=== PATIENT | female | born 1960 | race Caucasian/White ===

== ENCOUNTER 2016-07-28 00:37 | Inpatient (IN) | payer OTHER ==
[~2016-07-28] VITALS: Ht 177.8 cm; Wt 105.7 kg
[~2016-07-28 00:37] MED LIST: ACID1TAB16 PO; ALBU8.5H2 IH; ALDACTAZIDE; CEPH250T PO; CIPR250S3 PO; CIPR250T3 PO; CODE118S2 PO; D50KC PO; DOXY100C2 PO; ESOM20SU PO; FLC150T PO; FRSM20T PO; FURO20TA4 PO; FURO40TA4 PO; FURO80TA3 PO; FURO80TA83 PO; GUAI5LIQ3 PO; HYDR118S10 PO; HYDR1CAP2 PO; HYOS0.1217 PO; KCL20TCR PO; LACT10SO PO; LACT10SO5 PO; LACTULOSE PO; LEVO500T69 PO; LEVO750T9 PO; METH4TAB PO; METO5TAB6 PO; METR500T PO; NEPA1.7D OS; NITR-65 PO; ONDA-42 SL; ONDA4TAB11 PO; ONDA4TAB11 SL; ONDA4TAB8 SL; OXYC-12 PO; OXYC-190 PO; OXYC10TA7 PO; OXYC15TA73 PO; OXYC20TA3 PO; OXYC30TA77 PO; PNT40TEC PO; POTA10CA43 PO; POTA10TA36 PO; PRD20T PO; PRED5DRO17 OD; PRED5DRO17 OS; PRM25T PO; RANI150T11 PO; RANI150T90 PO; RIFA550T3 PO; RNT150T PO; SCR1T1 PO; SPIR100T2 PO; SPIR1TAB; SPIR50TA2 PO; SPIR50TA27 PO; SPRN25T PO; TRM50T PO; WATER PILL; [UNRECOGNIZED DRUG - REMARK]; [UNRECOGNIZED DRUG - REMARK]
--- OUTSIDE RECORDS SUMMARY | 2016-07-28 00:43 | XMS REPORT | Continuity of Care Document ---
Author Author [facility] Organization [facility] Address Unknown Phone Unavailable Care Team Providers Care Auto Glass Installer Name Role Phone Nolvia Lovell PCP [phone] Source Comments Some departments are not documenting in the electronic medical record. If you do not see the information that you expected, contact Release of Information in the Health Information Management department at [phone] for further assistance in locating additional records.[facility] Active Allergies and Adverse Reactions Not on File Current Medications Not on file Active Problems Not on file Social History Tobacco Use Types Packs/Day Years Used Date Never Assessed Plan of Care Date Type Specialty Providers Description 08/14/2016 Appointment Hepatology Nicki Gonzalez MD [address] [facility] [address] [place] [address] [phone] (Fax) Health Maintenance Due Date Last Done Comments Hepatitis C Screening 1959 Physical (Comprehensive) 1966 Exam Pertussis Vaccine 1970 Tetanus Vaccine 02/13/1976 Cervical Cancer Screening 02/13/1980 Breast Cancer Screening 1999 Colorectal Cancer 2009 Screening Influenza Vaccine 03/29/2016 Results from Last 3 Months Not on file
[2016-07-28] MEDS: NS IV 1000 ML 1,000 ML IV SCH ×2 (01:53→14:20)
[2016-07-28] MEDS: LACTULOSE SYRUP 10GM/15ML (ENULOSE) 30ML UDC PO SCH ×8 (01:54→23:36)
[2016-07-28 04:00] VITALS: BP 102/66
[2016-07-28] MEDS ORDERED: FLU TRIvalent (5 YOA+) 2016-17 (AFLURIA) 0.5 ML IM ONE (07:45)
[2016-07-28 08:00] VITALS: BP 114/71
[2016-07-28] MEDS ORDERED: CATHETER FLUSH 10 ML SYR IV PRN (09:30)
[2016-07-28 09:37] LABS: MEAN PLATELET VOLUME 9.1 FL (7.4-10.4); RED BLOOD COUNT 2.14 10^6/uL (4.35-5.85); RED CELL DISTRIBUTION WIDTH 19.9 % (10.0-14.5); WHITE BLOOD COUNT 7.1 10^3/uL (4.3-11.0)
[2016-07-28 09:52] LABS: ALBUMIN 2.5 G/DL (3.2-4.5); BILIRUBIN,TOTAL 11.1 MG/DL (0.1-1.0); CALCIUM 8.1 MG/DL (8.5-10.1); CREATININE SERUM 1.38 MG/DL (0.60-1.30); MAGNESIUM 1.9 MG/DL (1.8-2.4); POTASSIUM 4.4 MMOL/L (3.6-5.0); TOTAL PROTEIN 4.9 G/DL (6.4-8.2)
[2016-07-28] MEDS: LACTULOSE SYRUP 10GM/15ML (ENULOSE) 30ML UDC PR SCH ×5 (10:04→23:37)
--- NOTE | 2016-07-28 11:17 | History & Physicial (CHS) ---
HPI History of Present Illness: This is a 56 yo female w/ advanced liver disease secondary to BROWN. Pt has had a hx of multiple hospitalization for confusion related to hepatic encephalopathy. Pt is on Lactulose but family reports patient is non-compliant with it due to not liking the taste. Pt's reported to the ER that she takes 1-2 doses per day but not 4 doses as prescribed. Pt was last hospitalized on 07/02/16 for the same condition. Over the past few days patient has been increasingly confused and was subsequently taken to the [facility]. She was found to have an ammonia level >300. Pt is chronically anemic and was found to have a Hb around 7 at [facility]. Pt was transferred to for admission. She continues to be confused this am, though she is arousable. She has been not -compliant with taking the Lactulose po since admission. Exam Limitations: clinical condition Date seen by provider: Jul 28, 2016 Time seen by provider: 09:10 Attending Physician Matt Blackmon DO PCP sabina,[facility] Date of Admission Jul 28, 2016 at 00:37 Home Medications Home Medications Reviewed patient Home Medication Reconciliation Form Allergies Coded Allergies: No Known Drug Allergies (Unverified , 03/22/13) OBI-Phbwxa-Stzcrh Hx Patient Social History Alcohol Use: Denies Use Recreational Drug Use: No (SMOKER, DENIES ALCOHOL USE) Smoking Status: Current Everyday Smoker Type Used: Cigarettes Recent Foreign Travel: No Contact w/other who traveled: No Recent Hopitalizations: Yes (1981-intestinal bypass (for weight loss) & appy, 1983 removed uterus -cance) Recent Infectious Disease Expo: No Physical Abuse Screen: No Sexual Abuse: No Immunizations Up To Date Tetanus Booster (TDap): Unknown Date of Influenza Vaccine: May 06, 2015 Past Medical History Past medical history 1. 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 Thompson, multiple episodes of hepatic Encephalopathy 2. 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 Portal hypertension and splenomegaly secondary to number 1 4. Pancytopenia 5. Tobaccoism 6. Hiatal hernia and GERD 7. History of pancreatic pseudocyst 8. Venous insufficiency and chronic stasis dermatitis 9. Cervical cancer by history 10. Chronic Narcotic Use secondary to "chronic pain" 11. Chronic non-compliance with medications, diet and follow up Past surgical history 1. Hysterectomy 2. Tonsillectomy and adenoidectomy 3. Varicose vein stripping 4. Cholecystectomy 5. Intestinal bypass and reversal 6. Appendectomy 7. Esophageal varices banding x4 2010 Family Medical History Significant Family History: No Pertinent Family Hx, GI Disease Family History: Cervical cancer 19 MOTHER FH: heart disease 19 FATHER Review of Systems ([facility]) Constitutional: other (unable to obtain secondary to patient's confusion) Physical Exam-([facility]) Physical Exam Vital Signs VS - Last 72 Hours, by Label 07/27/16 07/28/16 01:15 04:00 Temp 97.8 Pulse 79 Resp 16 B/P 102/66 Pulse Ox 94 O2 Delivery Room Air Room Air Capillary Refill : Less Than 3 Seconds General Appearance: no apparent distress Respiratory: lungs clear normal breath sounds Cardiovascular: regular rate, rhythm Gastrointestinal: soft Neurologic/Psychiatric: other (arousable but lethargic, not oriented) Skin: jaundice Assessment/Plan Assessment/Plan Admission Dx 1. Hepatic Encephalopathy w. elevated ammonia levels 2. End-stage liver disease secondary to BROWN 3. Chronic pancytopenia secondary to #2 Plan 1. Hepatic Encephalopathy w/ elevated ammonia levels ADM 07/28/16 from [facility] ER - non-compliance with home lactulose dosing with elevated ammonia levels >300 in the ER - pt refusing po lactulose; will do NH as needed; ammonia levels have decreased to 111 since admission 2. End-stage liver disease secondary to BROWN ADM - bili 11.1 currently (was 7 02/2016) - will continue home Spironolactone, Lasix and Ranitidine 3. Chronic pancytopenia secondary to #2 ADM - baseline Hb in the 7s which is not significantly different from current level - multiple antibody complicates blood transfusion; do not recommend transfusion at this time as pt is near baseline currently at 6.8 after IVF 4. THERON - likely secondary to intravascular volume depletion ADM - GFR 39 (improved some from ER); GFR was 60 on most recent clinic lab - gently IVF hydration, monitor DVT ppx: Lovenox contraindicated secondary to thrombocytopenia, will use SCDs Diagnosis/Problems: Clinical Quality Measures DVT/VTE Risk/Contraindication: Risk Factor Score Per Nursin RFS Level Per Nursing on Admit: 4+=Very High MATT BLACKMON DO Jul 28, 2016 11:17
[2016-07-28 11:28] LABS: INR 1.6 (0.8-1.4); PROTHROMBIN TIME PATIENT 18.9 SEC (12.2-14.7)
[2016-07-28 12:00] VITALS: BP 102/64
[2016-07-28 16:00] VITALS: BP 106/70
[2016-07-28] MEDS: FUROSEMIDE 40 MG (LASIX) TAB PO SCH (17:00)
[2016-07-28 20:15] VITALS: BP 112/65
[2016-07-28] MEDS ORDERED: FAMOTIDINE 20 MG (PEPCID) TABLET PO SCH (21:00)
[2016-07-28] MEDS ORDERED: raNItidine (ZANTAC) 150 MG TAB NON-FORMULARY PO SCH (21:00)
[2016-07-28] MEDS ORDERED: FUROSEMIDE 80 MG PO SCH (21:00)
[2016-07-28 23:31] VITALS: BP 122/69
[2016-07-29] MEDS: NS IV 1000 ML 1,000 ML IV SCH (02:37)
[2016-07-29 03:26] VITALS: BP 122/58
[2016-07-29] MEDS: LACTULOSE SYRUP 10GM/15ML (ENULOSE) 30ML UDC PR SCH (03:57)
[2016-07-29] MEDS: LACTULOSE SYRUP 10GM/15ML (ENULOSE) 30ML UDC PO SCH (03:57)
[2016-07-29 05:33] LABS: MEAN PLATELET VOLUME 8.6 FL (7.4-10.4); RED BLOOD COUNT 2.23 10^6/uL (4.35-5.85); RED CELL DISTRIBUTION WIDTH 20.4 % (10.0-14.5); WHITE BLOOD COUNT 8.9 10^3/uL (4.3-11.0)
[2016-07-29 05:48] LABS: ALBUMIN 2.5 G/DL (3.2-4.5); BILIRUBIN,TOTAL 10.2 MG/DL (0.1-1.0); CALCIUM 7.9 MG/DL (8.5-10.1); CREATININE SERUM 1.26 MG/DL (0.60-1.30); MAGNESIUM 1.9 MG/DL (1.8-2.4); POTASSIUM 3.7 MMOL/L (3.6-5.0); TOTAL PROTEIN 4.8 G/DL (6.4-8.2)
[2016-07-29] MEDS: FUROSEMIDE 40 MG (LASIX) TAB PO SCH (06:24)
[2016-07-29 08:00] VITALS: BP 123/70
[2016-07-29] MEDS ORDERED: LACTULOSE 10 GM/15 ML 30 ML POUR BOTTLE FOR ENEMA PO SCH ×3 (08:00→14:00)
[2016-07-29] MEDS ORDERED: LACTULOSE 10 GM/15 ML 30 ML POUR BOTTLE FOR ENEMA PR SCH (08:00)
[2016-07-29] MEDS ORDERED: SPIRONOLACTONE 100 MG (ALDACTONE) TABLET PO SCH (09:00)
[2016-07-29] MEDS ORDERED: CALCIUM CARBONATE 500 MG (TUMS) TAB.CHEW PO PRN (11:00)
--- NOTE | 2016-07-29 11:06 | Progress Note (SOAP) ---
Subjective Subjective/Events-last exam Pt now significantly more alert. RN weakness and unsteadiness w/ ambulation. Now taking lactulose po. Objective Exam Last Set of Vital Signs Vital Signs Date Time Temp Pulse Resp B/P Pulse Ox O2 Delivery O2 Flow Rate FiO2 07/29/16 08:00 99.7 71 22 123/70 95 07/29/16 07:32 Room Air Capillary Refill : Less Than 3 Seconds I&O Intake and Output 07/29/16 00:00 Intake Total 1440 ml Output Total 425 ml Balance 1015 ml Intake Oral 440 ml IV Total 1000 ml Output Urine Total 425 ml # Voids 2 # Urine Diapers 1 # Bowel Movements 2 General: Alert, Oriented X3, Cooperative Skin: Other (jaundiced) Psych/Mental Status: Mood NL Results/Procedures Lab Laboratory Tests 07/29/16 05:20: Alanine Aminotransferase (ALT/SGPT) 21, Albumin 2.5L, Alkaline Phosphatase 142H , Ammonia 47H, Anion Gap 10, Aspartate Amino Transf (AST/SGOT) 28, BUN/ Creatinine Ratio 20, Blood Urea Nitrogen 25H, Calcium Level 7.9L, Carbon Dioxide Level 18L, Chloride Level 110H, Creatinine 1.26, Estimat Glomerular Filtration Rate 44, Glucose Level 116H, Hematocrit 22L, Hemoglobin 6.9*L, Magnesium Level 1.9, Mean Corpuscular Hemoglobin 31, Mean Corpuscular Hemoglobin Concent 32, Mean Corpuscular Volume 98, Mean Platelet Volume 8.6, Platelet Count 121L, Potassium Level 3.7, Red Blood Count 2.23L, Red Cell Distribution Width 20.4H, Sodium Level 138, Total Bilirubin 10.2H, Total Protein 4.8L, White Blood Count 8.9 Assessment/Plan Assessment/Plan Admission Dx 1. Hepatic Encephalopathy w. elevated ammonia levels 2. End-stage liver disease secondary to BROWN 3. Chronic pancytopenia secondary to #2 Plan 1. Hepatic Encephalopathy w/ elevated ammonia levels ADM 07/28/16 from [facility] [place] - non-compliance with home lactulose dosing with elevated ammonia levels >300 in the ER - pt refusing po lactulose; will do HI as needed; ammonia levels have decreased to 111 since admission 07/29 - ammonia level down to 47 w/ clearing mentation; change lactulose back to home dose of 10g q6h; discussed with pt and importance of compliance with q6h dosing at home. 2. End-stage liver disease secondary to BROWN ADM - bili 11.1 currently (was 7 02/2016) - will continue home Spironolactone, Lasix and Ranitidine 3. Chronic pancytopenia secondary to #2 ADM - baseline Hb in the 7s which is not significantly different from current level - multiple antibody complicates blood transfusion; do not recommend transfusion at this time as pt is near baseline currently at 6.8 after IVF 07/29 - Hb stable at 6.9 4. THERON - likely secondary to intravascular volume depletion ADM - GFR 39 (improved some from ER); GFR was 60 on most recent clinic lab - gently IVF hydration, monitor 07/29 - GFR 44 - improving DVT ppx: Lovenox contraindicated secondary to thrombocytopenia, will use SCDs Disp: Will ambulate today, anticipate DC home tomorrow. Diagnosis/Problems: Clinical Quality Measures DVT/VTE Risk/Contraindication: Risk Factor Score Per Nursin RFS Level Per Nursing on Admit: 4+=Very High Contraindications-Pharm: Other *list below* MATT BLACKMON DO Jul 29, 2016 11:06
[2016-07-29 12:00] VITALS: BP 128/60
[2016-07-29] MEDS ORDERED: LACTULOSE SYRUP 10GM/15ML (ENULOSE) 30ML UDC PO SCH (14:00)
--- NOTE | 2016-08-01 11:29 | Physician Query-Final Dx ---
KODI KERR 08/01/16 1129: Final Diagnosis Give Final Diagnosis Please give Final Diagnosis MATT BLACKMON DO 08/02/16 1206: Final Diagnosis Give Final Diagnosis 1. Hepatic Encephalopathy w/ elevated ammonia levels ADM 07/28/16 from [facility] ER - non-compliance with home lactulose dosing with elevated ammonia levels >300 in the ER - pt refusing po lactulose; will do SC as needed; ammonia levels have decreased to 111 since admission 07/29 - ammonia level down to 47 w/ clearing mentation; change lactulose back to home dose of 10g q6h; discussed with pt and importance of compliance with q6h dosing at home. 2. End-stage liver disease secondary to BROWN ADM - bili 11.1 currently (was 7 02/2016) - will continue home Spironolactone, Lasix and Ranitidine 3. Chronic pancytopenia secondary to #2 ADM - baseline Hb in the 7s which is not significantly different from current level - multiple antibody complicates blood transfusion; do not recommend transfusion at this time as pt is near baseline currently at 6.8 after IVF 07/29 - Hb stable at 6.9 4. THERON - likely secondary to intravascular volume depletion ADM - GFR 39 (improved some from ER); GFR was 60 on most recent clinic lab - gently IVF hydration, monitor 07/29 - GFR 44 - improving Disp: patient left AMA on 07/29/16 KODI KERR Aug 01, 2016 11:29 MATT BLACKMON DO Aug 02, 2016 12:06
== END 2016-07-29 13:25 | disposition left against medical advice (07) | DRG 442 ==
LOC: 4TH 00:37
PROVIDERS: ADMIT Family Medicine; ATTEND Family Medicine
DX: K72.90 Hepatic failure, unspecified without coma (principal); K74.60 Unspecified cirrhosis of liver; K75.81 Nonalcoholic steatohepatitis (NASH); D61.818 Other pancytopenia; N17.9 Acute kidney failure, unspecified; E86.9 Volume depletion, unspecified; F17.210 Nicotine dependence, cigarettes, uncomplicated; Z91.14 Patient's other noncompliance with medication regimen
CPT/HCPCS: 36415; 80053; 82140; 83735; 85027; 85610

== ENCOUNTER 2016-08-11 22:12 | Inpatient (IN) | payer OTHER ==
[~2016-08-11] VITALS: Ht 177.8 cm; Wt 114.5 kg
--- OUTSIDE RECORDS SUMMARY | 2016-08-11 22:17 | XMS REPORT | Continuity of Care Document ---
Author Author [facility] Organization [facility] Address Unknown Phone Unavailable Care Team Providers Care Metal Machine Setter Name Role Phone Nolvia Lovell PCP [phone] Source Comments Some departments are not documenting in the electronic medical record. If you do not see the information that you expected, contact Release of Information in the Health Information Management department at [phone] for further assistance in locating additional records.[facility] Active Allergies and Adverse Reactions Not on File Current Medications Not on file Active Problems Not on file Most Recent Encounters Date Type Specialty Providers Description 08/08/2016 Telephone Hepatology Nicki Gonzalez MD Appointment Request Social History Tobacco Use Types Packs/Day Years Used Date Never Assessed Plan of Care Date Type Specialty Providers Description 08/14/2016 Appointment Hepatology Nicki Goznalez MD [address] [facility] [address] [place] [address] [phone] (Fax) Health Maintenance Due Date Last Done Comments Hepatitis C Screening 1959 Physical (Comprehensive) 1966 Exam Pertussis Vaccine 1970 Tetanus Vaccine 02/13/1976 Cervical Cancer Screening 02/13/1980 Breast Cancer Screening 1999 Colorectal Cancer 2009 Screening Influenza Vaccine 03/29/2016 Results from Last 3 Months Not on file
[2016-08-11 22:21] LABS: BASOPHILS # (AUTO) 0.1 10^3/uL (0.0-0.1); BASOPHILS % (AUTO) 1 % (0-10); EOSINOPHILS # (AUTO) 0.4 10^3/uL (0.0-0.3); EOSINOPHILS % (AUTO) 4 % (0-10); LYMPHOCYTES # (AUTO) 2.1 X 10^3 (1.0-4.0); LYMPHOCYTES % (AUTO) 22 % (12-44); MEAN CORPUSCULAR HEMOGLOBIN 30 PG (25-34); MEAN CORPUSCULAR HGB CONC 33 G/DL (32-36); MEAN CORPUSCULAR VOLUME 92 FL (80-99); MEAN PLATELET VOLUME 9.1 FL (7.4-10.4); MONOCYTES # (AUTO) 1.2 X 10^3 (0.0-1.0); MONOCYTES % (AUTO) 13 % (0-12); NEUTROPHILS # (AUTO) 5.9 X 10^3 (1.8-7.8); NEUTROPHILS % (AUTO) 61 % (42-75); PLATELET COUNT 149 10^3/uL (130-400); RED CELL DISTRIBUTION WIDTH 20.2 % (10.0-14.5); WHITE BLOOD COUNT 9.7 10^3/uL (4.3-11.0)
[2016-08-11] MEDS ORDERED: POTA10CA43 PO (22:29)
[2016-08-11 22:30] LABS: INR 1.6 (0.8-1.4); PROTHROMBIN TIME PATIENT 18.4 SEC (12.2-14.7)
[2016-08-11 22:40] LABS: ALBUMIN 3.1 G/DL (3.2-4.5); BILIRUBIN,TOTAL 11.9 MG/DL (0.1-1.0); CALCIUM 8.4 MG/DL (8.5-10.1); CREATININE SERUM 1.19 MG/DL (0.60-1.30); POTASSIUM 4.2 MMOL/L (3.6-5.0); TOTAL PROTEIN 6.2 G/DL (6.4-8.2)
[2016-08-11] MEDS ORDERED: NALOXONE 0.4 MG/ML 1 ML (NARCAN) VIAL IV ONE (22:45)
[2016-08-11] MEDS ORDERED: ONDANSETRON 4 MG/2 ML (SDV) Z0FRAN ONE (22:46)
[2016-08-11] MEDS ORDERED: NS IV 500 ML 500 ML IV ONE (22:57)
[2016-08-11] MEDS ORDERED: LACTULOSE SYRUP 10GM/15ML (ENULOSE) 30ML UDC PO ONE (23:30)
--- NOTE | 2016-08-11 23:39 | ED General ---
General Chief Complaint: Altered Mental Status Stated Complaint: LETHARGIC Nursing Triage Note: pt family reports pt has become increasingly sedated and having issues with lower leg swelling since yesterdy afternoon. Upon arrival pt is able to be aroused verbally and with mild stimulation but falls asleep shortly after. It is also noted that pt has irregular respirations with periods of apnea when sleeping. Nursing Sepsis Screen: No Definite Risk Source of Information: Patient, EMS, Family, Old Records Exam Limitations: Physical Impairments History of Present Illness Time Seen by Provider: 22:14 Initial Comments This 56-year-old woman presents to the emergency room via EMS with altered mental status. She has brief periods of apnea without hypoxia. She has history of chronic liver failure. She has been admitted for hepatic encephalopathy recently and left AGAINST MEDICAL ADVICE. She has had numerous visits and admissions over the last year. Family activated EMS because of altered mental status. They report she has been nauseated and had some cough. She has not produced a bowel movement in several days despite taking 15 mL of lactulose 4 times a day as well as Dulcolax. They report she has actually had 5 doses of lactulose today. She also took 30 mg of morphine in the last 24 hours and has had a total of 10 Benadryl tablets in the past 48 hours. Urine output has also been decreased. She is afebrile. She is responsive but falls asleep again shortly after stimulus ceases. She will answer some questions. She has chronic anemia and has required transfusions in the past. Allergies and Home Medications Allergies Coded Allergies: No Known Drug Allergies (Unverified , 03/22/13) Home Medications Furosemide 80 Mg Tablet #60 80 MG PO BID Prescribed by: VIVI REID on 07/02/168 Lactulose 10 Gm/15 Ml Solution 90Days 10 GM PO TID Prescribed by: VIVI REID on 07/02/16 115 Potassium Chloride 10 Meq Capsule.er 10 MEQ PO DAILY (Reported) Ranitidine HCl 150 Mg Tablet #60 150 MG PO BID Prescribed by: VIVI REID on 07/02/16 115 Spironolactone 100 Mg Tablet #60 200 MG PO DAILY Prescribed by: VIVI REID on 07/02/16 1158 Constitutional: see HPI EENTM: other (scleral icterus, dry mouth) Respiratory: see HPI Cardiovascular: no symptoms reported Gastrointestinal: see HPI Genitourinary: see HPI : No Musculoskeletal: no symptoms reported Skin: other (jaundice) Psychiatric/Neurological: See HPI Hematologic/Lymphatic: See HPI Immunological/Allergic: no symptoms reported Past Ajhwhcq-Smmlfr-Lndyui Hx Patient Social History Alcohol Use: Denies Use Recreational Drug Use: No (SMOKER, DENIES ALCOHOL USE) Smoking Status: Current Everyday Smoker Type Used: Cigarettes Recent Foreign Travel: No Contact w/Someone Who Travel: No Recent Infectious Disease Expo: No Recent Hopitalizations: Yes (1981-intestinal bypass (for weight loss) & appy, 1983 removed uterus -cance) Physical Abuse Screen: No Sexual Abuse: No Immunizations Up To Date Tetanus Booster (TDap): Unknown Date of Influenza Vaccine: May 06, 2015 Seasonal Allergies Seasonal Allergies: No Surgeries HX Surgeries: Yes (INTESTINAL BYPASS & REVERSAL, EXPL. 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 Genitourinary Hx Genitourinary Disorders: No Gastrointestinal Hx Gastrointestinal Disorders: Yes Gastrointestinal Disorders: Gastroesophageal Reflux, Liver Disease/Jaundice, Esophageal Varices, Ulcer, Cirrhosis, Gall Bladder Disease Musculoskeletal Hx Musculoskeletal Disorders: No Endocrine Hx Endocrine Disorders: Yes Endocrine Disorders: Lupus HEENT HX ENT Disorders: Yes HEENT Disorders: Cataract Cancer Hx Cancer: Yes Cancer: Cervical Psychosocial Hx Psychiatric Problems: No Integumentary HX Skin/Integumentary Disorder: Yes (venous stasis manuel lower ext ) Blood Transfusions Hx Blood Disorders: Yes (ANEMIA) Adverse Reaction to a Blood Tr: Yes (BLOOD BANK ALERT) Family Medical History Significant Family History: No Pertinent Family Hx, GI Disease Family Medial History: Cervical cancer 19 MOTHER FH: heart disease 19 FATHER Physical Exam Vital Signs Vital Sign - Last 12Hours 08/11/16 22:15 Temp 99.3 Pulse 85 Resp 7 B/P 128/53 Pulse Ox 98 Capillary Refill : Less Than 3 Seconds General Appearance: WD/WN Other (sedated, decreased responsiveness) HEENT: PERRL/EOMI Scleral Icterus (L) Scleral Icterus (R) Other (oropharynx dry with a small amount of dry blood in the mouth.) Respiratory: Lungs Clear Normal Breath Sounds No Accessory Muscle Use No Respiratory Distress Other (brief periods of apnea without hypoxia) Cardiovascular: Regular Rate, Rhythm No Edema No Murmur Gastrointestinal: Normal Bowel Sounds Non Tender Soft Extremity: Pedal Edema (severe pitting edema in the bilateral lower extremities) Neurologic/Psychiatric: Alert (with stimulation) Other (hypersomnolent. No apparent focal motor deficits. Global weakness.) Skin: Warm/Dry Jaundice Progress/Results/Core Measures Results/Orders Lab Results Laboratory Tests Test 08/11/16 22:13 08/11/16 22:23 Range/Units Alanine Aminotransferase (ALT/SGPT) 31 0-55 U/L Albumin 3.1 L 3.2-4.5 G/DL Alkaline Phosphatase 196 H 40-136 U/L Anion Gap 14 5-14 MMOL/L Aspartate Amino Transf (AST/SGOT) 38 H 5-34 U/L BUN/Creatinine Ratio 17 Basophils # (Auto) 0.1 0.0-0.1 10^3/uL Basophils (%) (Auto) 1 0-10 % Blood Urea Nitrogen 20 H 7-18 MG/DL Calcium Level 8.4 L 8.5-10.1 MG/DL Carbon Dioxide Level 20 L 21-32 MMOL/L Chloride Level 99 98-107 MMOL/L Creatinine 1.19 0.60-1.30 MG/DL Eosinophils # (Auto) 0.4 H 0.0-0.3 10^3/uL Eosinophils (%) (Auto) 4 0-10 % Estimat Glomerular Filtration Rate 47 Glucose Level 122 H 70-105 MG/DL Hematocrit 24 L 35-52 % Hemoglobin 7.9 L 11.5-16.0 G/DL INR Comment 1.6 H 0.8-1.4 Lymphocytes # (Auto) 2.1 1.0-4.0 X 10^3 Lymphocytes (%) (Auto) 22 12-44 % Magnesium Level 2.0 1.8-2.4 MG/DL Mean Corpuscular Hemoglobin 30 25-34 PG Mean Corpuscular Hemoglobin Concent 33 32-36 G/DL Mean Corpuscular Volume 92 80-99 FL Mean Platelet Volume 9.1 7.4-10.4 FL Monocytes # (Auto) 1.2 H 0.0-1.0 X 10^3 Monocytes (%) (Auto) 13 H 0-12 % Neutrophils # (Auto) 5.9 1.8-7.8 X 10^3 Neutrophils (%) (Auto) 61 42-75 % Platelet Count 149 130-400 10^3/uL Potassium Level 4.2 3.6-5.0 MMOL/L Prothrombin Time 18.4 H 12.2-14.7 SEC Red Blood Count 2.60 L 4.35-5.85 10^6/uL Red Cell Distribution Width 20.2 H 10.0-14.5 % Sodium Level 133 L 135-145 MMOL/L Total Bilirubin 11.9 H 0.1-1.0 MG/DL Total Protein 6.2 L 6.4-8.2 G/DL White Blood Count 9.7 4.3-11.0 10^3/uL Ammonia 127 H 11-32 UMOL/L My Orders Orders-JUAN JOSE WILLAMS MD Cbc With Automated Diff (08/11/16 22:14) Comprehensive Metabolic Panel (08/11/16 22:14) Magnesium (08/11/16 22:14) Protime With Inr (08/11/16 22:14) Ua Culture If Indicated (08/11/16 22:14) Saline Lock/Iv-Start (08/11/16 22:14) Ammonia (08/11/16 22:19) Drug Screen Stat (Urine) (08/11/16 22:31) Naloxone Injection (Narcan Injection) (08/11/16 22:45) [facility] Cath (08/11/16 22:31) Ondansetron Injection (Zofran Injectio (08/11/16 22:46) Ns Iv 500 Ml (Sodium Chloride 0.9%) (08/11/16 22:57) Chest 1 View, Ap/Pa Only (08/11/16 22:58) Lactulose Oral Solution (Enulose Oral So (08/11/16 23:30) Medications Given in ED Current Medications Medications Dose Ordered Sig/Maricel Route Start Time Stop Time Status Last Admin Dose Admin Naloxone HCl 0.4 mg ONCE ONCE IV 08/11/16 22:45 08/11/16 22:46 DC 08/11/16 22:49 0.4 MG Ondansetron HCl 4 mg 4 mg STK-MED ONCE .ROUTE 08/11/16 22:46 08/11/16 22:53 DC 08/11/16 23:01 4 MG Sodium Chloride 500 ml @ 0 mls/hr Q0M ONCE IV 08/11/16 22:57 08/11/16 22:58 DC 08/11/16 23:01 0 MLS/HR Vital Signs/I&O Vital Sign - Last 12Hours 08/11/16 22:15 Temp 99.3 Pulse 85 Resp 7 B/P 128/53 Pulse Ox 98 Blood Pressure Mean: 78 Progress Note : Progress Note Patient received normal saline 500 mL and a bolus in the emergency room due to renal insufficiency. She has had little urine output and appears very dry. She was extremely somnolent initially which improved markedly with 0.4 mg of Narcan. UA was pending at the time of admission. Lactulose 30 grams was given in the ER. Diagnostic Imaging Diagonstic Imaging: Xray Plain Films/CT/US/NM/MRI: chest Comments chest x-ray viewed by me and compared with prior. No report available. No acute changes from prior. Atelectasis with poor inspiratory effort noted. Departure Communication Time/Spoke to Admitting Phy: 23:15 Communication Case reviewed with Dr. Tawanna Wagoner and agrees with admission to the ICU to be observed overnight. She agrees with increasing lactulose dose. Impression Impression: Primary Impression: Acute hepatic encephalopathy Additional Impressions: Hyperbilirubinemia Hyperammonemia Chronic liver failure Qualified Code: K72.10 - Chronic hepatic failure without coma Nausea and vomiting Qualified Code: R11.2 - Nausea with vomiting, unspecified Chronic anemia Narcotic overdose Qualified Code: T40.604A - Poisoning by unspecified narcotics, undetermined, initial encounter respiratory suppression Disposition: ADMITTED INPATIENT Condition: Improved Decision to Admit Reason: Admit from ER (General) Decision to Admit/Date: Aug 11, 2016 Time/Decision to Admit Time: 22:14 Departure-Patient Inst. Referrals: [facility] (PCP/Family) Primary Care Physician JUAN JOSE WILLAMS MD Aug 11, 2016 23:38
[2016-08-12] VITALS (27 sets, daily range): BP systolic 95–132; BP diastolic 35–102
[2016-08-12 00:29] LABS: BILIRUBIN,URINE NEGATIVE (NEGATIVE); KETONES,URINE NEGATIVE (NEGATIVE); LEUKOCYTE ESTERASE ,URINE NEGATIVE (NEGATIVE); NITRITE,URINE NEGATIVE (NEGATIVE); PH,URINE 5 (5-9); PROTEIN,URINE NEGATIVE (NEGATIVE); UROBILINOGEN,URINE NORMAL (NORMAL)
[2016-08-12] MEDS ORDERED: NALOXONE 0.4 MG/ML 1 ML (NARCAN) VIAL IV PRN (01:00)
[2016-08-12] MEDS ORDERED: ONDANSETRON 4 MG/2 ML (SDV) Z0FRAN IV PRN (01:00)
[2016-08-12] MEDS: NS IV 1000 ML 1,000 ML IV SCH ×3 (01:30→17:32)
[2016-08-12 04:03] LABS: BASOPHILS # (AUTO) 0.1 10^3/uL (0.0-0.1); BASOPHILS % (AUTO) 1 % (0-10); EOSINOPHILS # (AUTO) 0.2 10^3/uL (0.0-0.3); EOSINOPHILS % (AUTO) 2 % (0-10); LYMPHOCYTES # (AUTO) 1.5 X 10^3 (1.0-4.0); LYMPHOCYTES % (AUTO) 16 % (12-44); MEAN CORPUSCULAR HEMOGLOBIN 30 PG (25-34); MEAN CORPUSCULAR HGB CONC 32 G/DL (32-36); MEAN CORPUSCULAR VOLUME 93 FL (80-99); MEAN PLATELET VOLUME 8.7 FL (7.4-10.4); MONOCYTES % (AUTO) 11 % (0-12); NEUTROPHILS # (AUTO) 6.9 X 10^3 (1.8-7.8); NEUTROPHILS % (AUTO) 71 % (42-75); PLATELET COUNT 127 10^3/uL (130-400); RED BLOOD COUNT 2.44 10^6/uL (4.35-5.85); RED CELL DISTRIBUTION WIDTH 20.5 % (10.0-14.5); WHITE BLOOD COUNT 9.7 10^3/uL (4.3-11.0)
[2016-08-12 04:13] LABS: INR 1.6 (0.8-1.4); PROTHROMBIN TIME PATIENT 18.7 SEC (12.2-14.7)
[2016-08-12 04:24] LABS: ALBUMIN 2.8 G/DL (3.2-4.5); BILIRUBIN,TOTAL 11.1 MG/DL (0.1-1.0); CREATININE SERUM 1.15 MG/DL (0.60-1.30); MAGNESIUM 1.9 MG/DL (1.8-2.4); POTASSIUM 4.3 MMOL/L (3.6-5.0); TOTAL PROTEIN 5.7 G/DL (6.4-8.2)
--- NOTE | 2016-08-12 07:55 | Diagnostic Imaging Report ---
INDICATION: Shortness of breath. Comparison made with prior examination from 06/01/16. FINDINGS: There's cardiomegaly. There is mild venous congestion. Some patchy bibasal atelectasis and/or pneumonitis. There is no pleural effusion or pneumothorax. The mediastinum is unremarkable. IMPRESSION: Patchy bibasilar atelectasis and/or pneumonitis. Cardiomegaly and mild central pulmonary venous congestion. Dictated by: Dictated on workstation # [id number]
[2016-08-12] MEDS: LACTULOSE SYRUP 10GM/15ML (ENULOSE) 30ML UDC PO SCH ×4 (08:39→22:00)
--- NOTE | 2016-08-12 09:22 | Diagnostic Imaging Report ---
INDICATION: Hepatic encephalopathy and narcotic overdose with renal insufficiency. COMPARISON: Comparison made with prior examination 08/11/16. FINDINGS: There is cardiomegaly. There is mild venous congestion. There is no pleural effusion or pneumothorax. Mediastinum is unremarkable. IMPRESSION: Cardiomegaly and mild central pulmonary venous congestion. Dictated by: Dictated on workstation # [id number]
[2016-08-12] MEDS ORDERED: LACTULOSE 10 GM/15 ML 30 ML POUR BOTTLE FOR ENEMA PR NR (11:30)
[2016-08-12] MEDS ORDERED: SOD POLYSTERENE 15 GM/60 ML (KAYEXALATE) UNIT DOSE PO SCH (12:00)
[2016-08-12] MEDS: LACTULOSE 10 GM/15 ML 30 ML POUR BOTTLE FOR ENEMA PR SCH ×2 (12:01→13:43)
[2016-08-12] MEDS ORDERED: LACTULOSE SYRUP 10GM/15ML (ENULOSE) 30ML UDC PR SCH (14:30)
--- NOTE | 2016-08-12 18:20 | History & Physicial (CHS) ---
HPI History of Present Illness: 56yo woman with a history of BROWN, in ESLD presented to hospital at the behest of her family for obtundation. Patient was hospitalized a week ago with similar symptoms. Was given lactulose enemas and eventually aroused. The folowing morning, she left hospital AMA. This admission, patient presented with lethargy and difficulty arousing. She was virtually unarousable this morning by myself and nursing staff but did wake up for her son's voice and nudges. Son reports that she has been compliant with her lactulose and has even been taking extra doses. She has not stooled in over 4 days. In addition , she was given benadryl, appx 6 tabs over the past 48h (reason unknown to me). Son reports no fevers, but she has had increased swelling above where she normally has. He states it is marginally improved this morning. In talking iwth her over the phone as well as her son, Charla has cancelled multiple appointments to and appears to her to be "afraid of a liver transplant" and would not want that. Source: patient, family Exam Limitations: clinical condition Date seen by provider: Aug 12, 2016 Attending Physician Sabrina Santiago MD [place] [facility] [place] Date of Admission Aug 11, 2016 at 11:40 pm Home Medications Home Medications Reviewed patient Home Medication Reconciliation Form Allergies Coded Allergies: No Known Drug Allergies (Unverified , 03/22/13) PHD-Gpclhr-Aszjnn Hx Patient Social History Alcohol Use: Denies Use Recreational Drug Use: No (SMOKER, DENIES ALCOHOL USE) Smoking Status: Current Everyday Smoker Type Used: Cigarettes Recent Foreign Travel: No Contact w/other who traveled: No Recent Hopitalizations: Yes (1981-intestinal bypass (for weight loss) & appy, 1983 removed uterus -cance) Recent Infectious Disease Expo: No Physical Abuse Screen: No Sexual Abuse: No Immunizations Up To Date Tetanus Booster (TDap): Unknown Date of Influenza Vaccine: May 06, 2015 Past Medical History Past medical history 1. 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 Thompson, multiple episodes of hepatic Encephalopathy 2. 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 Portal hypertension and splenomegaly secondary to number 1 4. Pancytopenia 5. Tobaccoism 6. Hiatal hernia and GERD 7. History of pancreatic pseudocyst 8. Venous insufficiency and chronic stasis dermatitis 9. Cervical cancer by history 10. Chronic Narcotic Use secondary to "chronic pain" 11. Chronic non-compliance with medications, diet and follow up Past surgical history 1. Hysterectomy 2. Tonsillectomy and adenoidectomy 3. Varicose vein stripping 4. Cholecystectomy 5. Intestinal bypass and reversal 6. Appendectomy 7. Esophageal varices banding x4 2010 Family Medical History Significant Family History: No Pertinent Family Hx, GI Disease Family History: Cervical cancer 19 MOTHER FH: heart disease 19 FATHER Review of Systems (CHC) Constitutional: no symptoms reported Other unable to obtain due to clinical condition Reviewed Test Results Reviewed Test Results Lab Laboratory Tests Test 08/11/16 22:13 08/11/16 22:23 08/11/16 23:26 08/12/16 03:54 Range/Units Alanine Aminotransferase (ALT/SGPT) 31 29 0-55 U/L Albumin 3.1 L 2.8 L 3.2-4.5 G/DL Alkaline Phosphatase 196 H 182 H 40-136 U/L Anion Gap 14 11 5-14 MMOL/L Aspartate Amino Transf (AST/SGOT) 38 H 32 5-34 U/L BUN/Creatinine Ratio 17 17 Basophils # (Auto) 0.1 0.1 0.0-0.1 10^3/uL Basophils (%) (Auto) 1 1 0-10 % Blood Urea Nitrogen 20 H 19 H 7-18 MG/DL Calcium Level 8.4 L 8.0 L 8.5-10.1 MG/DL Carbon Dioxide Level 20 L 22 21-32 MMOL/L Chloride Level 99 100 98-107 MMOL/L Creatinine 1.19 1.15 0.60-1.30 MG/DL Eosinophils # (Auto) 0.4 H 0.2 0.0-0.3 10^3/uL Eosinophils (%) (Auto) 4 2 0-10 % Estimat Glomerular Filtration Rate 47 49 Glucose Level 122 H 122 H 70-105 MG/DL Hematocrit 24 L 23 L 35-52 % Hemoglobin 7.9 L 7.3 L 11.5-16.0 G/DL INR Comment 1.6 H 1.6 H 0.8-1.4 Lymphocytes # (Auto) 2.1 1.5 1.0-4.0 X 10^3 Lymphocytes (%) (Auto) 22 16 12-44 % Magnesium Level 2.0 1.9 1.8-2.4 MG/DL Mean Corpuscular Hemoglobin 30 30 25-34 PG Mean Corpuscular Hemoglobin Concent 33 32 32-36 G/DL Mean Corpuscular Volume 92 93 80-99 FL Mean Platelet Volume 9.1 8.7 7.4-10.4 FL Monocytes # (Auto) 1.2 H 1.0 0.0-1.0 X 10^3 Monocytes (%) (Auto) 13 H 11 0-12 % Neutrophils # (Auto) 5.9 6.9 1.8-7.8 X 10^3 Neutrophils (%) (Auto) 61 71 42-75 % Platelet Count 149 127 L 130-400 10^3/uL Potassium Level 4.2 4.3 3.6-5.0 MMOL/L Prothrombin Time 18.4 H 18.7 H 12.2-14.7 SEC Red Blood Count 2.60 L 2.44 L 4.35-5.85 10^6/uL Red Cell Distribution Width 20.2 H 20.5 H 10.0-14.5 % Sodium Level 133 L 133 L 135-145 MMOL/L Total Bilirubin 11.9 H 11.1 H 0.1-1.0 MG/DL Total Protein 6.2 L 5.7 L 6.4-8.2 G/DL White Blood Count 9.7 9.7 4.3-11.0 10^3/uL Ammonia 127 H 114 H 11-32 UMOL/L Ur Tricyclic Antidepressants Screen NEGATIVE NEGATIVE Urine Amphetamines Screen NEGATIVE NEGATIVE Urine Bacteria NEGATIVE /HPF Urine Barbiturates Screen NEGATIVE NEGATIVE Urine Benzodiazepines Screen NEGATIVE NEGATIVE Urine Bilirubin NEGATIVE NEGATIVE Urine Cannabinoids Screen NEGATIVE NEGATIVE Urine Casts PRESENT /LPF Urine Clarity CLEAR Urine Cocaine Screen NEGATIVE NEGATIVE Urine Color YELLOW Urine Crystals NONE /LPF Urine Culture Indicated NO Urine Glucose (UA) NEGATIVE NEGATIVE Urine Hyaline Casts 2-5 H /LPF Urine Ketones NEGATIVE NEGATIVE Urine Leukocyte Esterase NEGATIVE NEGATIVE Urine Methadone Screen NEGATIVE NEGATIVE Urine Methamphetamines Screen NEGATIVE NEGATIVE Urine Mucus SMALL H /LPF Urine Nitrite NEGATIVE NEGATIVE Urine Opiates Screen POSITIVE H NEGATIVE Urine Oxycodone Screen POSITIVE H NEGATIVE Urine Phencyclidine Screen NEGATIVE NEGATIVE Urine Propoxyphene Screen NEGATIVE NEGATIVE Urine Protein NEGATIVE NEGATIVE Urine RBC NONE /HPF Urine RBC (Auto) NEGATIVE NEGATIVE Urine Specific [place] 1.015 L 1.016-1.022 Urine Squamous Epithelial Cells 5-10 /HPF Urine Urobilinogen NORMAL NORMAL MG/DL Urine WBC NONE /HPF Urine pH 5 5-9 Phosphorus Level 4.0 2.3-4.7 MG/DL Physical Exam-([facility]) Physical Exam Vital Signs VS - Last 72 Hours, by Label 08/11/16 08/11/16 08/12/16 08/12/16 00:00 22:15 00:10 00:20 Temp 99.3 99.3 Pulse 85 87 Resp 7 12 B/P 128/53 Pulse Ox 98 97 O2 Delivery Nasal Cannula Nasal Cannula Nasal Cannula O2 Flow Rate 2.00 2 2.00 08/12/16 08/12/16 08/12/16 08/12/16 00:29 00:38 00:45 01:00 Temp 98.9 Pulse 88 89 90 88 Resp 10 8 B/P 124/58 132/64 Pulse Ox 95 95 O2 Delivery Nasal Cannula Nasal Cannula O2 Flow Rate 2.00 2.00 08/12/16 08/12/16 08/12/16 08/12/16 01:00 01:15 01:30 01:45 Pulse 88 87 89 90 Resp 9 12 8 8 B/P 117/82 130/56 130/55 128/61 Pulse Ox 93 95 92 92 O2 Delivery Nasal Cannula Nasal Cannula Nasal Cannula Nasal Cannula O2 Flow Rate 2.00 2.00 2.00 2.00 08/12/16 08/12/16 08/12/16 08/12/16 02:00 03:00 04:00 04:00 Pulse 92 90 92 Resp 9 10 10 B/P 132/62 117/59 131/59 Pulse Ox 91 95 93 O2 Delivery Nasal Cannula Nasal Cannula Nasal Cannula Nasal Cannula O2 Flow Rate 2.00 2.00 2.00 2.00 08/12/16 08/12/16 08/12/16 08/12/16 05:00 06:00 07:00 08:00 Pulse 92 89 90 Resp 11 12 B/P 123/63 122/54 Pulse Ox 94 96 O2 Delivery Nasal Cannula Nasal Cannula Nasal Cannula O2 Flow Rate 2.00 2.00 2.00 08/12/16 08/12/16 08/12/16 08/12/16 08:06 09:00 12:00 12:18 Temp 99.6 99.6 O2 Delivery Nasal Cannula Nasal Cannula O2 Flow Rate 3.00 2.00 08/12/16 08/12/16 08/12/16 13:00 16:00 16:00 Temp 99.3 Pulse 87 O2 Delivery Nasal Cannula O2 Flow Rate 2.00 Capillary Refill : Less Than 3 Seconds General Appearance: mild distress obese other HEENT: PERRL/EOMI scleral icterus (R) scleral icterus (L) Neck: full range of motion supple normal inspection Respiratory: lungs clear normal breath sounds no respiratory distress no accessory muscle use Cardiovascular: regular rate, rhythm no gallop no murmur JVD Gastrointestinal: non tender abnormal bowel sounds (hypoactive) other ( massive fluid wave) Extremities: other (poor cap refill with >4+ pitting edema, chronic with hemosiderin deposits) Neurologic/Psychiatric: other (difficult to arouse but does answer simple questions from son) Skin: jaundice (deeply jaundiced) Assessment/Plan Assessment/Plan Admission Dx SEE BELOW Plan END STAGE LIVER DISEASE HEPATIC ENCEPHALOPATHY BROWN FLUID OVERLOAD DUE TO ESLD PANCYTOPENIA DUE TO ESLD I spoke with Gwyn, her son, and her at length. They were initially very interested in transferring to for evaluation. However, her and son eventually decided this was not likely what she would have wanted. We also discussed doing a few more measures here versus going on home comfort care with the support of hospice. They decided that they would like to try the lactulose enemas having seen them work a few weeks ago. We discussed that Charla was sicker than I have ever seen her, and it may be very difficult to remove the toxins out of her body without suffering ill effects of the lactulose. We agreed to do lactulose enemas today and then reevaluate in the morning when the social work administrator and palliative care nurse were here to assist the family. Son and were very agreeable to that plan. At this point, I am dubious as to whether this will work. I am not sure if the bendryl has slowed her bowels due to antimuscarinic properties, or if her bowels have slowed from the edema alone. I am not going to give any lasix today as that often will escalate the issues with hyperammonemia. In addition, I will hold off on a blood transfusion until we know whether we are going to do more invasive measures. Spoke with son who said that she did not want to be coded. Apparently he heard her tell Dr Kiser in ER that she didn't know "why would she want to do that?" as though it was a bad idea to her. Son comfortable with moving forward with plan including DNR status. Diagnosis/Problems: Clinical Quality Measures DVT/VTE Risk/Contraindication: Risk Factor Score Per Nursin RFS Level Per Nursing on Admit: 4+=Very High SABRINA SANTIAGO MD Aug 12, 2016 6:20 pm
[2016-08-13] VITALS (14 sets, daily range): BP systolic 108–124; BP diastolic 48–88
[2016-08-13] MEDS: NS IV 1000 ML 1,000 ML IV SCH ×2 (02:41→10:03)
[2016-08-13 03:59] LABS: BASOPHILS % (AUTO) 0 % (0-10); EOSINOPHILS # (AUTO) 0.3 10^3/uL (0.0-0.3); EOSINOPHILS % (AUTO) 3 % (0-10); LYMPHOCYTES # (AUTO) 1.6 X 10^3 (1.0-4.0); LYMPHOCYTES % (AUTO) 16 % (12-44); MEAN CORPUSCULAR HGB CONC 31 G/DL (32-36); MEAN CORPUSCULAR VOLUME 94 FL (80-99); MEAN PLATELET VOLUME 8.9 FL (7.4-10.4); MONOCYTES # (AUTO) 1.6 X 10^3 (0.0-1.0); MONOCYTES % (AUTO) 16 % (0-12); NEUTROPHILS # (AUTO) 6.4 X 10^3 (1.8-7.8); NEUTROPHILS % (AUTO) 65 % (42-75); PLATELET COUNT 127 10^3/uL (130-400); RED BLOOD COUNT 2.24 10^6/uL (4.35-5.85); RED CELL DISTRIBUTION WIDTH 20.8 % (10.0-14.5); WHITE BLOOD COUNT 9.9 10^3/uL (4.3-11.0)
[2016-08-13 04:06] LABS: MEAN CORPUSCULAR HEMOGLOBIN 29 PG (25-34)
[2016-08-13 04:29] LABS: CALCIUM 7.7 MG/DL (8.5-10.1); CREATININE SERUM 1.08 MG/DL (0.60-1.30); MAGNESIUM 1.8 MG/DL (1.8-2.4); PHOSPHORUS 2.6 MG/DL (2.3-4.7); POTASSIUM 3.9 MMOL/L (3.6-5.0)
[2016-08-13] MEDS: LACTULOSE SYRUP 10GM/15ML (ENULOSE) 30ML UDC PO SCH ×4 (05:00→23:31)
--- NOTE | 2016-08-13 08:26 | Diagnostic Imaging Report ---
INDICATION: Hepatic encephalopathy. Narcotic overdose. EXAMINATION: Chest 08/13/2016. COMPARISON: 08/12/2016. FINDINGS: There is cardiomegaly. Pulmonary vasculature is mildly congested. There are findings of pulmonary edema throughout both lungs with more focal infiltrate at the right lung base. No effusions are seen, and there is no pneumothorax. IMPRESSION: Right base infiltrate with edema noted throughout the remaining lungs. Dictated by: Dictated on workstation # [id number]
[2016-08-13] MEDS ORDERED: CATHETER FLUSH 10 ML SYR IV PRN (09:00)
[2016-08-13] MEDS ORDERED: FURO80TA3 PO (10:29)
[2016-08-13] MEDS ORDERED: LACT10SO PO (10:29)
[2016-08-13] MEDS ORDERED: RANI150T11 PO (10:29)
[2016-08-13] MEDS ORDERED: SPIR100T2 PO (10:29)
[2016-08-13] MEDS ORDERED: POTA10TA36 PO (10:32)
[2016-08-13] MEDS: FUROSEMIDE 40 MG (LASIX) TAB PO SCH ×2 (11:01→20:31)
--- NOTE | 2016-08-13 11:24 | Progress Note (SOAP) ---
Subjective Subjective/Events-last exam Improved cognition overnight and is requesting to eat regular food this am. Objective Exam Last Set of Vital Signs Vital Signs Date Time Temp Pulse Resp B/P Pulse Ox O2 Delivery O2 Flow Rate FiO2 08/13/16 09:54 Nasal Cannula 3.00 08/13/16 08:21 98.3 08/13/16 07:00 87 08/13/16 06:00 19 96 Capillary Refill : Less Than 3 Seconds I&O Intake and Output 08/13/16 00:00 Intake Total 2150 ml Output Total 1710 ml Balance 440 ml Intake Oral 150 ml IV Total 2000 ml Output Urine Total 1710 ml # Bowel Movements 3 General: Other (slowed responses but alert) Lungs: Clear to Auscultation, Normal Air Movement Heart: Regular Rate, Other (Holosystolic murmur 5/6) Abdomen: Normal Bowel Sounds, Soft Extremities: Other (2+ pitting edema to hips) Skin: Other (jaundice) Neuro: Other (oriented to self and location but not date or year, severe asterixis) Results/Procedures Lab Laboratory Tests 08/13/16 03:50: Ammonia 63H, Anion Gap 10, BUN/Creatinine Ratio 18, Basophils # (Auto) 0.0, Basophils (%) (Auto) 0, Blood Urea Nitrogen 19H, Calcium Level 7.7L, Carbon Dioxide Level 19L, Chloride Level 104, Creatinine 1.08, Eosinophils # (Auto) 0.3 , Eosinophils (%) (Auto) 3, Estimat Glomerular Filtration Rate 52, Glucose Level 108H, Hematocrit 21L, Hemoglobin 6.6*L, Lymphocytes # (Auto) 1.6, Lymphocytes (%) (Auto) 16, Magnesium Level 1.8, Mean Corpuscular Hemoglobin 29, Mean Corpuscular Hemoglobin Concent 31L, Mean Corpuscular Volume 94, Mean Platelet Volume 8.9, Monocytes # (Auto) 1.6H, Monocytes (%) (Auto) 16H, Neutrophils # (Auto) 6.4, Neutrophils (%) (Auto) 65, Phosphorus Level 2.6, Platelet Count 127L, Potassium Level 3.9, Red Blood Count 2.24L, Red Cell Distribution Width 20.8H, Sodium Level 133L, White Blood Count 9.9 Microbiology 08/12/16 MRSA Screen - Final, Complete MRSA not isolated Assessment/Plan Assessment/Plan Admission Dx SEE BELOW Plan END STAGE LIVER DISEASE- has been referred to and cancelled several appointments previously 08/13- She notes she had an appointment 08/14 but cancelled because she was sick. Discussed that if she is not able or wanting to go to Hepatology there is minimal other treatment available currently. Also did discuss that Hepatology visit does not guarantee the possibility of improvement or transplant either. She does want to reschedule with Hepatology at this point, we will call and try to facilitate appointment at earliest possible time given severity of her current illness HEPATIC ENCEPHALOPATHY- lactulose, lactobacillus -Was on rifaximin in past through assistance program, will look into whether able to resume 08/13- ammonia down to 63, continue lactulose, discussed importance of taking at home and she states she is taking FLUID OVERLOAD DUE TO ESLD- held lasix on admit due to severe hepatic encephalopathy 08/13 Poor urine output, will resume home diuretics lasix and spironolactone PANCYTOPENIA DUE TO ESLD 08/13 Hgb below 7, will transfuse but will require quite some time to obtain blood due to presence of 4 antibodies ADMIT dispositon: (Dr. Wagoner) I spoke with Gwyn, her son, and her at length. They were initially very interested in transferring to for evaluation. However, her and son eventually decided this was not likely what she would have wanted. We also discussed doing a few more measures here versus going on home comfort care with the support of hospice. They decided that they would like to try the lactulose enemas having seen them work a few weeks ago. We discussed that Charla was sicker than I have ever seen her, and it may be very difficult to remove the toxins out of her body without suffering ill effects of the lactulose. We agreed to do lactulose enemas today and then reevaluate in the morning when the vp digital marketing social media and crm and palliative care nurse were here to assist the family. Son and were very agreeable to that plan. Spoke with son who said that she did not want to be coded. Apparently he heard her tell Dr Kiser in ER that she didn't know "why would she want to do that?" as though it was a bad idea to her. Son comfortable with moving forward with plan including DNR status. 08/13- now that Charla is more alert, she states she has absolutely no interest in hospice/palliative care and she wants to try to go to Hepatology. She also states she wants to be a full code, although with her mental status it is difficult to determine as she states if she was dying, she would want to be home on her couch with her family, but when asked if that means she does not want intubation and attempted resuscitation, she states "Why wouldn't I want that?". Her son and agree they want her to be full code for now. Had long discussion with Charla about the severity of her illness and the reality that her liver will continue to worsen which will result in her and the increasing frequency of hospital admissions demonstrating her worsening, but she states she is not ready to discuss palliative care today. Diagnosis/Problems: Clinical Quality Measures DVT/VTE Risk/Contraindication: Risk Factor Score Per Nursin RFS Level Per Nursing on Admit: 4+=Very High FRANK RODRÍGUEZ MD Aug 13, 2016 11:23
[2016-08-13] MEDS ORDERED: FLU TRIvalent (5 YOA+) 2016-17 (AFLURIA) 0.5 ML IM ONE (12:45)
[2016-08-13] MEDS: LACTOBACILLUS Acidoph/Bulgar (LACTINEX/FLORANEX) TAB PO SCH (16:19)
[2016-08-13] MEDS ORDERED: oxyCODONE/APAP 5/325MG (PERCOCET 5) TABLET PO NR (16:30)
[2016-08-13] MEDS: SPIRONOLACTONE 100 MG (ALDACTONE) TABLET PO SCH (16:37)
[2016-08-13] MEDS ORDERED: FUROSEMIDE 40 MG (LASIX) TAB PO SCH (21:00)
[2016-08-14] VITALS (12 sets, daily range): BP systolic 94–144; BP diastolic 46–63
[2016-08-14] MEDS: LACTULOSE SYRUP 10GM/15ML (ENULOSE) 30ML UDC PO SCH ×4 (05:14→20:44)
[2016-08-14] MEDS: LACTOBACILLUS Acidoph/Bulgar (LACTINEX/FLORANEX) TAB PO SCH ×3 (05:15→17:35)
[2016-08-14 08:09] LABS: BASOPHILS % (AUTO) 0 % (0-10); EOSINOPHILS # (AUTO) 0.3 10^3/uL (0.0-0.3); EOSINOPHILS % (AUTO) 4 % (0-10); LYMPHOCYTES # (AUTO) 1.3 X 10^3 (1.0-4.0); LYMPHOCYTES % (AUTO) 14 % (12-44); MEAN CORPUSCULAR HEMOGLOBIN 30 PG (25-34); MEAN CORPUSCULAR HGB CONC 32 G/DL (32-36); MEAN CORPUSCULAR VOLUME 94 FL (80-99); MEAN PLATELET VOLUME 8.9 FL (7.4-10.4); MONOCYTES # (AUTO) 1.2 X 10^3 (0.0-1.0); MONOCYTES % (AUTO) 13 % (0-12); NEUTROPHILS # (AUTO) 6.3 X 10^3 (1.8-7.8); NEUTROPHILS % (AUTO) 69 % (42-75); PLATELET COUNT 117 10^3/uL (130-400); RED BLOOD COUNT 2.26 10^6/uL (4.35-5.85); RED CELL DISTRIBUTION WIDTH 21.3 % (10.0-14.5); WHITE BLOOD COUNT 9.1 10^3/uL (4.3-11.0)
[2016-08-14 08:12] LABS: MAGNESIUM 1.6 MG/DL (1.8-2.4)
[2016-08-14 08:19] LABS: CALCIUM 7.7 MG/DL (8.5-10.1); CREATININE SERUM 0.98 MG/DL (0.60-1.30); POTASSIUM 3.7 MMOL/L (3.6-5.0)
[2016-08-14] MEDS: SPIRONOLACTONE 100 MG (ALDACTONE) TABLET PO SCH (09:00)
[2016-08-14] MEDS ORDERED: SPIRONOLACTONE 100 MG (ALDACTONE) TABLET PO SCH (09:00)
[2016-08-14] MEDS: FUROSEMIDE 40 MG (LASIX) TAB PO SCH ×2 (09:00→20:47)
--- NOTE | 2016-08-14 10:46 | Progress Note (SOAP) ---
Subjective Subjective/Events-last exam Afebrile, no acute events, mentation improved. Objective Exam Last Set of Vital Signs Vital Signs Date Time Temp Pulse Resp B/P Pulse Ox O2 Delivery O2 Flow Rate FiO2 08/14/16 08:04 Room Air 08/14/16 08:00 98.6 89 20 144/52 96 08/13/16 19:27 3.00 Capillary Refill : Less Than 3 Seconds I&O Intake and Output 08/14/16 00:00 Intake Total 3000 ml Output Total 1100 ml Balance 1900 ml Intake Oral 1000 ml IV Total 2000 ml Output Urine Total 1100 ml # Bowel Movements 2 General: Alert, Oriented X3 Lungs: Clear to Auscultation, Normal Air Movement Heart: Regular Rate, Other (5/6 systolic murmur) Abdomen: Normal Bowel Sounds, Soft Neuro: Normal Speech Psych/Mental Status: Mental Status NL Results/Procedures Lab Laboratory Tests 08/14/16 07:30: Ammonia 50H, Basophils # (Auto) 0.0, Basophils (%) (Auto) 0, Eosinophils # (Auto ) 0.3, Eosinophils (%) (Auto) 4, Hematocrit 21L, Hemoglobin 6.8*L, Lymphocytes # (Auto) 1.3, Lymphocytes (%) (Auto) 14, Magnesium Level 1.6L, Mean Corpuscular Hemoglobin 30, Mean Corpuscular Hemoglobin Concent 32, Mean Corpuscular Volume 94, Mean Platelet Volume 8.9, Monocytes # (Auto) 1.2H, Monocytes (%) (Auto) 13H , Neutrophils # (Auto) 6.3, Neutrophils (%) (Auto) 69, Platelet Count 117L, Red Blood Count 2.26L, Red Cell Distribution Width 21.3H, White Blood Count 9.1 08/14/16 07:50: Anion Gap 9, BUN/Creatinine Ratio 17, Blood Urea Nitrogen 17, Calcium Level 7.7L , Carbon Dioxide Level 21, Chloride Level 101, Creatinine 0.98, Estimat Glomerular Filtration Rate 58, Glucose Level 118H, Potassium Level 3.7, Sodium Level 131L Microbiology 08/12/16 MRSA Screen - Final, Complete MRSA not isolated Assessment/Plan Assessment/Plan Admission Dx SEE BELOW Plan END STAGE LIVER DISEASE- has been referred to [facility] and cancelled several appointments previously 08/13- She notes she had an appointment 08/14 but cancelled because she was sick. Discussed that if she is not able or wanting to go to Hepatology there is minimal other treatment available currently. Also did discuss that Hepatology visit does not guarantee the possibility of improvement or transplant either. She does want to reschedule with Hepatology at this point, we will call and try to facilitate appointment at earliest possible time given severity of her current illness 08/14- called Hepatology clinic and waiting for call back to reschedule her appointment HEPATIC ENCEPHALOPATHY- lactulose, lactobacillus -Was on rifaximin in past through assistance program, will look into whether able to resume 08/13- ammonia down to 63, continue lactulose, discussed importance of taking at home and she states she is taking 08/14- ammonia down to 50, continue lactulose and lactobacillus, will contact our patient med sales service coordinator to see if we can get Xifaxin restarted FLUID OVERLOAD DUE TO ESLD- held lasix on admit due to severe hepatic encephalopathy 08/13 Poor urine output, will resume home diuretics lasix and spironolactone 08/14 improved PANCYTOPENIA DUE TO ESLD 08/13 Hgb below 7, will transfuse but will require quite some time to obtain blood due to presence of 4 antibodies 08/14 Still waiting on compatible blood ADMIT dispositon: (Dr. Wagoner) I spoke with Gwyn, her son, and her at length. They were initially very interested in transferring to for evaluation. However, her and son eventually decided this was not likely what she would have wanted. We also discussed doing a few more measures here versus going on home comfort care with the support of hospice. They decided that they would like to try the lactulose enemas having seen them work a few weeks ago. We discussed that Charla was sicker than I have ever seen her, and it may be very difficult to remove the toxins out of her body without suffering ill effects of the lactulose. We agreed to do lactulose enemas today and then reevaluate in the morning when the social media developer and palliative care nurse were here to assist the family. Son and were very agreeable to that plan. Spoke with son who said that she did not want to be coded. Apparently he heard her tell Dr Kiser in ER that she didn't know "why would she want to do that?" as though it was a bad idea to her. Son comfortable with moving forward with plan including DNR status. 08/13- now that Charla is more alert, she states she has absolutely no interest in hospice/palliative care and she wants to try to go to Hepatology. She also states she wants to be a full code, although with her mental status it is difficult to determine as she states if she was dying, she would want to be home on her couch with her family, but when asked if that means she does not want intubation and attempted resuscitation, she states "Why wouldn't I want that?". Her son and agree they want her to be full code for now. Had long discussion with Charla about the severity of her illness and the reality that her liver will continue to worsen which will result in her and the increasing frequency of hospital admissions demonstrating her worsening, but she states she is not ready to discuss palliative care today. 08/14- Charla continues to desire to get better, discussed that seeing Hepatology is reasonable, but also cautioned there may not be much more to offer in the way of medication at this time. Diagnosis/Problems: Clinical Quality Measures DVT/VTE Risk/Contraindication: Risk Factor Score Per Nursin RFS Level Per Nursing on Admit: 4+=Very High FRANK RODRÍGUEZ MD Aug 14, 2016 10:46 am
[2016-08-14] MEDS ORDERED: MAGNESIUM 1 GM/100 ML IVPB 100 ML IV NR (11:00)
[2016-08-14] MEDS ORDERED: KCL 20 MEQ TAB (K-DUR) PO NR (11:00)
[2016-08-14] MEDS ORDERED: NS IV 500 ML 500 ML ONE (13:20)
[2016-08-15] VITALS: BP 105/52
[2016-08-15 04:00] VITALS: BP 117/56
[2016-08-15] MEDS: LACTULOSE SYRUP 10GM/15ML (ENULOSE) 30ML UDC PO SCH ×2 (04:45→12:08)
[2016-08-15 05:29] LABS: BASOPHILS % (AUTO) 0 % (0-10); EOSINOPHILS # (AUTO) 0.5 10^3/uL (0.0-0.3); EOSINOPHILS % (AUTO) 5 % (0-10); LYMPHOCYTES # (AUTO) 1.2 X 10^3 (1.0-4.0); LYMPHOCYTES % (AUTO) 13 % (12-44); MEAN CORPUSCULAR HEMOGLOBIN 30 PG (25-34); MEAN CORPUSCULAR HGB CONC 33 G/DL (32-36); MEAN CORPUSCULAR VOLUME 92 FL (80-99); MEAN PLATELET VOLUME 8.7 FL (7.4-10.4); MONOCYTES # (AUTO) 1.2 X 10^3 (0.0-1.0); MONOCYTES % (AUTO) 13 % (0-12); NEUTROPHILS # (AUTO) 6.7 X 10^3 (1.8-7.8); NEUTROPHILS % (AUTO) 70 % (42-75); PLATELET COUNT 102 10^3/uL (130-400); RED BLOOD COUNT 2.79 10^6/uL (4.35-5.85); RED CELL DISTRIBUTION WIDTH 19.5 % (10.0-14.5); WHITE BLOOD COUNT 9.6 10^3/uL (4.3-11.0)
[2016-08-15 05:59] LABS: ANION GAP 8 MMOL/L (5-14); BLOOD UREA NITROGEN 13 MG/DL (7-18); BUN/CREATININE RATIO 16; CALCIUM 7.9 MG/DL (8.5-10.1); CARBON DIOXIDE 22 MMOL/L (21-32); CHLORIDE 101 MMOL/L (98-107); CREATININE SERUM 0.83 MG/DL (0.60-1.30); GFR ESTIMATED > 60; GLUCOSE 106 MG/DL (70-105); POTASSIUM 3.8 MMOL/L (3.6-5.0); SODIUM 131 MMOL/L (135-145)
[2016-08-15] MEDS: LACTOBACILLUS Acidoph/Bulgar (LACTINEX/FLORANEX) TAB PO SCH ×2 (06:23→12:08)
[2016-08-15 08:10] VITALS: BP 118/67
[2016-08-15] MEDS: FUROSEMIDE 40 MG (LASIX) TAB PO SCH (09:04)
[2016-08-15] MEDS: SPIRONOLACTONE 100 MG (ALDACTONE) TABLET PO SCH (09:04)
[2016-08-15] MEDS ORDERED: LACT20SO2 PO (11:04)
[2016-08-15] MEDS ORDERED: ACID1TAB PO (11:04)
[2016-08-15] MEDS ORDERED: PROP20TA5 PO (11:04)
--- NOTE | 2016-08-15 11:28 | Discharge Instructions ---
Discharge Inst-[facility] Discharge Medications New, Converted or Re-Newed RX: Transmitted to Pharmacy New Medications: Propranolol HCl (Propranolol HCl) 20 Mg Tablet 20 MG PO BID #60 Ref 0 TAB L. Acidophilus/Bulgaricus (Floranex Tablet) 1 Each Tablet 1 TAB.CHEW PO AC #90 Ref 0 TAB Lactulose (Lactulose) 20 Gm/30 Ml Solution 20 GM PO Q6H #3600 Ref 0 ML Continued Medications: Furosemide (Furosemide) 80 Mg Tablet 80 MG PO BID Ranitidine HCl (Ranitidine HCl) 150 Mg Tablet 150 MG PO BID TAB Spironolactone (Spironolactone) 100 Mg Tablet 200 MG PO DAILY TAKES 2 (100 MG) TABLETS TAB Discontinued Medications: Lactulose (Lactulose) 10 Gm/15 Ml Solution 10 GM PO TID EA Potassium Chloride (Potassium Chloride) 10 Meq Tab.er.prt 10 MEQ PO DAILY LAST FILLED 04/13/16 #30 PRN CRAMPS Patient Instructions Patient Instructions 1. Go to Hepatology Clinic to see Dr. Gonzalez on October 27 at 1 pm. (They will not reschedule this appointment due to history of rescheduling multiple times). 2. Follow up at [facility] with Dr. Ramey Aug 21 at 2:20 pm. 3. Start taking propranolol twice daily to protect against bleeding from esophageal varices. If you feel dizzy or lightheaded, stop and call clinic. 4. Increase lactulose to 30 ml four times per day to decrease ammonia levels and prevent confusion. Goal/Follow Up Appt: Dr. Gonzalez Hepatology 10/27 at 1 pm. Follow up with Dr. Ramey on 08/21 at 2:20 pm. Return to The Hospital For: Fever, severe abdominal pain, abdominal swelling, confusion Activity & Diet Discharge Diet: Eat Small Frequent Meals Activity as Tolerated: Yes Orders-Post D/C & Referrals Pneu Vac Indicated: Yes Copy Copies To 1: FRANK RAMEY MD, BETHANY N MD Aug 15, 2016 11:07 am
--- NOTE | 2016-08-15 11:29 | Discharge Summary ---
Diagnosis/Chief Complaint Date of Admission Aug 11, 2016 at 11:40 pm Date of Discharge Aug 15, 2016 Admission Diagnosis Admission Diagnosis SEE BELOW Discharge Diagnosis END STAGE LIVER DISEASE- has been referred to and cancelled several appointments previously 08/13- She notes she had an appointment 08/14 but cancelled because she was sick. Discussed that if she is not able or wanting to go to Hepatology there is minimal other treatment available currently. Also did discuss that Hepatology visit does not guarantee the possibility of improvement or transplant either. She does want to reschedule with Hepatology at this point, we will call and try to facilitate appointment at earliest possible time given severity of her current illness 08/14- called Hepatology clinic and waiting for call back to reschedule her appointment 08/15- she is scheduled with Hepatology on 10/27, but they will not reschedule should she cancel/no show because she has been scheduled 9 times since 2013 with no visit as of yet, we did let Charla know this information. Started propranol on d/c due to known history of esophageal varices with last EGD several years ago. HEPATIC ENCEPHALOPATHY- lactulose, lactobacillus -Was on rifaximin in past through assistance program, will look into whether able to resume 08/13- ammonia down to 63, continue lactulose, discussed importance of taking at home and she states she is taking 08/14- ammonia down to 50, continue lactulose and lactobacillus, will contact our patient med service learning coordinator to see if we can get Xifaxin restarted FLUID OVERLOAD DUE TO ESLD- held lasix on admit due to severe hepatic encephalopathy 08/13 Poor urine output, will resume home diuretics lasix and spironolactone 08/14 improved PANCYTOPENIA DUE TO ESLD 08/13 Hgb below 7, will transfuse but will require quite some time to obtain blood due to presence of 4 antibodies 08/14 Still waiting on compatible blood 08/15 received 2 units last night and Hgb above 8 this am ADMIT dispositon: (Dr. Wagoner) I spoke with Gwyn, her son, and her at length. They were initially very interested in transferring to for evaluation. However, her and son eventually decided this was not likely what she would have wanted. We also discussed doing a few more measures here versus going on home comfort care with the support of hospice. They decided that they would like to try the lactulose enemas having seen them work a few weeks ago. We discussed that Charla was sicker than I have ever seen her, and it may be very difficult to remove the toxins out of her body without suffering ill effects of the lactulose. We agreed to do lactulose enemas today and then reevaluate in the morning when the forensic social worker and palliative care nurse were here to assist the family. Son and were very agreeable to that plan. Spoke with son who said that she did not want to be coded. Apparently he heard her tell Dr Kiser in ER that she didn't know "why would she want to do that?" as though it was a bad idea to her. Son comfortable with moving forward with plan including DNR status. 08/13- now that Charla is more alert, she states she has absolutely no interest in hospice/palliative care and she wants to try to go to Hepatology. She also states she wants to be a full code, although with her mental status it is difficult to determine as she states if she was dying, she would want to be home on her couch with her family, but when asked if that means she does not want intubation and attempted resuscitation, she states "Why wouldn't I want that?". Her son and agree they want her to be full code for now. Had long discussion with Charla about the severity of her illness and the reality that her liver will continue to worsen which will result in her and the increasing frequency of hospital admissions demonstrating her worsening, but she states she is not ready to discuss palliative care today. 08/14- Charla continues to desire to get better, discussed that seeing Hepatology is reasonable, but also cautioned there may not be much more to offer in the way of medication at this time. Chief Complaint/HPI Chief Complaint/HPI 56yo woman with a history of BROWN, in ESLD presented to hospital at the behest of her family for obtundation. Patient was hospitalized a week ago with similar symptoms. Was given lactulose enemas and eventually aroused. The folowing morning, she left hospital AMA. This admission, patient presented with lethargy and difficulty arousing. She was virtually unarousable this morning by myself and nursing staff but did wake up for her son's voice and nudges. Son reports that she has been compliant with her lactulose and has even been taking extra doses. She has not stooled in over 4 days. In addition , she was given benadryl, appx 6 tabs over the past 48h (reason unknown to me). Son reports no fevers, but she has had increased swelling above where she normally has. He states it is marginally improved this morning. In talking iwth her over the phone as well as her son, Charla has cancelled multiple appointments to and appears to her to be "afraid of a liver transplant" and would not want that. Discharge Summary-Simple/Stand Consultations Discharge Physical Examination Allergies: Coded Allergies: No Known Drug Allergies (Unverified , 03/22/13) Vitals & I&Os Vital Sign - Last 12Hours Date Time Temp Pulse Resp B/P Pulse Ox O2 Delivery O2 Flow Rate FiO2 08/15/16 04:00 98.7 86 16 117/56 94 Room Air 08/13/16 19:27 3.00 Intake and Output 08/14/16 23:59 Intake Total 2280 ml Output Total 1645 ml Balance 635 ml General Appearance: Alert, Oriented X3 Respiratory: Clear to Auscultation, Normal Air Movement Cardiovascular: Regular Rate, Other (5/6 systolic murmur) Abdominal: Normal Bowel Sounds, No Tenderness, Other (mild distension) Extremities: Other (2+ pitting edema) Neuro: Normal Speech Psych/Mental Status: Mental Status NL Hospital Course See final discharge diagnosis. Labs Laboratory Tests Test 08/14/16 07:30 08/14/16 07:50 08/15/16 05:20 08/15/16 12:53 Range/Units Ammonia 50 H 49 H 11-32 UMOL/L Basophils # (Auto) 0.0 0.0 0.0-0.1 10^3/uL Basophils (%) (Auto) 0 0 0-10 % Eosinophils # (Auto) 0.3 0.5 H 0.0-0.3 10^3/uL Eosinophils (%) (Auto) 4 5 0-10 % Hematocrit 21 L 26 L 35-52 % Hemoglobin 6.8 *L 8.4 #L 11.5-16.0 G/DL Lymphocytes # (Auto) 1.3 1.2 1.0-4.0 X 10^3 Lymphocytes (%) (Auto) 14 13 12-44 % Magnesium Level 1.6 L 1.8-2.4 MG/DL Mean Corpuscular Hemoglobin 30 30 25-34 PG Mean Corpuscular Hemoglobin Concent 32 33 32-36 G/DL Mean Corpuscular Volume 94 92 80-99 FL Mean Platelet Volume 8.9 8.7 7.4-10.4 FL Monocytes # (Auto) 1.2 H 1.2 H 0.0-1.0 X 10^3 Monocytes (%) (Auto) 13 H 13 H 0-12 % Neutrophils # (Auto) 6.3 6.7 1.8-7.8 X 10^3 Neutrophils (%) (Auto) 69 70 42-75 % Platelet Count 117 L 102 L 130-400 10^3/uL Red Blood Count 2.26 L 2.79 L 4.35-5.85 10^6/uL Red Cell Distribution Width 21.3 H 19.5 H 10.0-14.5 % White Blood Count 9.1 9.6 4.3-11.0 10^3/uL Anion Gap 9 8 5-14 MMOL/L BUN/Creatinine Ratio 17 16 Blood Urea Nitrogen 17 13 7-18 MG/DL Calcium Level 7.7 L 7.9 L 8.5-10.1 MG/DL Carbon Dioxide Level 21 22 21-32 MMOL/L Chloride Level 101 101 98-107 MMOL/L Creatinine 0.98 0.83 0.60-1.30 MG/DL Estimat Glomerular Filtration Rate 58 > 60 Glucose Level 118 H 106 H 70-105 MG/DL Potassium Level 3.7 3.8 3.6-5.0 MMOL/L Sodium Level 131 L 131 L 135-145 MMOL/L Lab Scanned Report Transfusion Reaction Form [id number] Discharge Instructions to patient/family Please see electonic discharge instructions given to patient. Discharge Medications Reviewed and agree with Discharge Medication list on patient's Discharge Instruction sheet Clinical Quality Measures DVT/VTE Risk/Contraindication: Risk Factor Score Per Nursin RFS Level Per Nursing on Admit: 4+=Very High Copy Copies To 1: FRANK RODRÍGUEZ MD, BETHANY N MD Aug 15, 2016 11:29
[2016-08-15 13:00] VITALS: BP 118/67
== END 2016-08-15 13:15 | disposition home or self-care (01) | DRG 442 ==
LOC: EDUNIT# 22:12 → ER 22:13 → UNDOADMOB 23:40 → OBSVTOIN 23:40 → INTOOBSV 23:40 → ICU 23:40 → OBSVTOIN 08-12 00:05 → INTOOBSV 08-13 08:43 → OBSVTOIN 08-13 08:43 → 4TH 08-13 10:25 → ICU 08-13 10:25 → UNDODISIN 08-15 13:15
PROVIDERS: ADMIT Pediatrics; ATTEND Pediatrics
DX: K72.00 Acute and subacute hepatic failure without coma (principal); K74.60 Unspecified cirrhosis of liver; K75.81 Nonalcoholic steatohepatitis (NASH); E87.79 Other fluid overload; D61.818 Other pancytopenia
CPT/HCPCS: 36415; 51702; 71010; 80048; 80053; 80306; 81000; 82140; 83735; 84100; 85025; 85610; 86850; 86870; 86880; 86900; 86901; 86902; 86920; 86922; 87081; 94640; 94760; 96361; 96374; 96375

== ENCOUNTER 2016-09-23 22:05 | Inpatient (IN) | payer OTHER ==
[~2016-09-23] VITALS: Ht 170.2 cm; Wt 96.3 kg
[~2016-09-23 22:05] MED LIST changes: +ACID1TAB PO; +LACT20SO2 PO; +PROP20TA5 PO
--- OUTSIDE RECORDS SUMMARY | 2016-09-23 22:11 | XMS REPORT | Continuity of Care Document ---
Author Author [facility] Organization [facility] Address Unknown Phone Unavailable Care Team Providers Care Rack Washer Name Role Phone Sheron Ramey PCP [phone] Source Comments Some departments are not documenting in the electronic medical record. If you do not see the information that you expected, contact Release of Information in the Health Information Management department at [phone] for further assistance in locating additional records.[facility] Active Allergies and Adverse Reactions No Known Allergies Current Medications Prescription Sig. Disp. Refills Start End Date Status Date furosemide (LASIX) 80 mg Take 80 mg by mouth twice Active tablet daily. spironolactone Take 100 mg by mouth Active (ALDACTONE) 100 mg tablet twice daily. Take with food. potassium citrate(+) Take 10 mEq by mouth Active (UROCIT-K) 10 mEq (1,080 twice daily. Take with mg) tablet food. ranitidine(+) (ZANTAC) Take 150 mg by mouth Active 150 mg tablet daily. lactulose 10 gram/15 mL Take 15 g by mouth four Active oral solution times daily. albuterol (VENTOLIN HFA, Inhale 2 Puffs by mouth Active PROAIR HFA, PROVENTIL into the lungs every 6 HFA) 90 mcg/actuation hours as needed for inhaler Wheezing or Shortness of Breath. Shake well before use. albuterol 0.5% Inhale 2.5 mg solution by Active (PROVENTIL; VENTOLIN) 2.5 nebulizer as directed mg/0.5 mL nebulizer every 6 hours as needed solution for Shortness of Breath or Wheezing. pantoprazole DR Take 1 Tab by mouth twice 90 Tab 3 09/12/19 Active (PROTONIX) 40 mg tablet daily. 17 rifAXIMin (XIFAXAN) 550 Take 1 Tab by mouth twice 30 Tab 1 09/12/19 Active mg tablet daily. 17 rifAXIMin (XIFAXAN) 550 Take 1 Tab by mouth twice 14 Tab 0 09/12/19 09/19/19 mg tablet daily for 7 days. 17 17 Indications: HEPATIC ENCEPHALOPATHY Active Problems Problem Noted Date Pancytopenia (HCC) 09/10/2016 Hepatic encephalopathy (HCC) 09/09/2016 End stage liver disease (HCC) 09/09/2016 Hypokalemia 09/09/2016 Anemia 09/09/2016 Lactic acid acidosis 09/09/2016 Prolonged Q-T interval on ECG 09/09/2016 Nicotine abuse 09/09/2016 Narcotic overdose 09/09/2016 Most Recent Encounters Date Type Specialty Providers Description 09/19/2016 Telephone Hepatology Tricia Harper RN Follow-up Phone Call 09/19/2016 Telephone Hepatology Tricia Harper RN Medication Follow-up 09/12/2016 Orders Only Hepatology Whitney Dorman RN 09/12/2016 Anesthesia Kassy Curz, [employer] Event 09/12/2016 Surgery Jg Kevin MD ESOPHAGOGASTRODUODENOSCOP Y 09/11/2016 Anesthesia Vilma Gilmore SRNA Event 09/09/2016 [facility] Ruddy Jon MD Hepatic encephalopathy - Encounter Ana Markham MD (HCC) 09/12/2016 Anay Payne MD Buckles, Daniel C, MD 09/07/2016 Orders Only Hepatology Nicki Gonzalez MD Self-pay (Primary Dx ) 09/06/2016 Telephone Transplant Surgery Brigida Gaston Financial/Insurance Questions - INSURANCE COVERAGE / FINANCIAL INFORMATION 08/22/2016 Telephone Transplant Surgery Nicki Gonzalez MD Other - appointment 08/21/2016 Telephone Hepatology Nicki Gonzalez MD Other - reschedule 08/16/2016 Telephone Liver Transplant No Pcp, Na Financial Concerns - VM received 08/15/2016 Telephone Hepatology Nicki Gonzalez MD Follow-up Phone Call 08/08/2016 Telephone Hepatology Nicki Gonzalez MD Appointment Request Social History Tobacco Use Types Packs/Day Years Used Date Former Smoker Quit: 09/07/2016 Alcohol Use Drinks/Week oz/Week Comments No Last Filed Vital Signs Vital Sign Reading Time Taken Blood Pressure 112/44 09/12/2016 3:27 PM [employer] Pulse 83 09/12/2016 3:27 PM [employer] Temperature 36.9 C (98.5 F) 09/12/2016 3:27 PM [employer] Respiratory Rate - - Height 1.702 m (5' 7") 09/10/2016 2:01 PM [employer] Weight 99.973 kg (220 lb 6.4 oz) 09/12/2016 5:37 AM [employer] Body Mass Index 34.51 09/12/2016 5:37 AM [employer] Oxygen Saturation 95% 09/12/2016 3:27 PM [employer] Plan of Care Date Type Specialty Providers Description 12/13/2016 Appointment Hepatology Neil Walsh MD [address] [place] [address] [phone] (Fax) Health Maintenance Due Date Last Done Comments Hepatitis C Screening 1960 Physical (Comprehensive) 1966 Exam Pertussis Vaccine 1970 Tetanus Vaccine 02/13/1976 Cervical Cancer Screening 02/13/1980 Breast Cancer Screening 1999 Colorectal Cancer 2009 Screening Influenza Vaccine 03/29/2016 Procedures from Last 3 Months Procedure Name Priority Date/Time Associated Diagnosis Comments TELEMETRY STRIPS-SCAN 09/14/2016 Results for this 9:46 AM [employer] procedure are in the results section. TELEMETRY STRIPS-SCAN 09/14/2016 Results for this 9:46 AM [employer] procedure are in the results section. TELEMETRY STRIPS-SCAN 09/14/2016 Results for this 9:46 AM [employer] procedure are in the results section. ECG UNCONFIRMED-SCAN 09/14/2016 Results for this 7:10 AM [employer] procedure are in the results section. ESOPHAGOGASTRODUODENOSCOP 09/12/2016 Iron deficiency anemia Y 1:00 PM [employer] ECG-SCAN 09/12/2016 Results for this 6:50 AM [employer] procedure are in the results section. ECG-SCAN 09/11/2016 Results for this 1:05 PM [employer] procedure are in the results section. ECG-SCAN 09/11/2016 Results for this 1:05 PM [employer] procedure are in the results section. Results from Last 3 Months TELEMETRY STRIPS-SCAN (09/14/2016 9:46 AM) Narrative Ordered by an unspecified provider. TELEMETRY STRIPS-SCAN (09/14/2016 9:46 AM) Narrative Ordered by an unspecified provider. TELEMETRY STRIPS-SCAN (09/14/2016 9:46 AM) Narrative Ordered by an unspecified provider. ECG UNCONFIRMED-SCAN (09/14/2016 7:10 AM) Narrative Ordered by an unspecified provider. EGD REPORT (09/12/2016 12:14 PM) Component Value Range Provation Report Patient Name: Jose Enrique Dunham Procedure Date: 09/12/2016 12:14 PM CSN: [id number] Date of : 1960 Gender: Female Attending Physician: Jg Kevin MD Procedure: Upper GI endoscopy Indications: Roca rveillance procedure for esophageal varices. Providers: Jg Kevin MD (Doctor), Natalie Pérez MD (Fellow), Annette Putnam RN (Nurse), Angel Luis Madsen RN (Nurse) Referring Physician: Anay Payne Medications: Mo nitored Anesthesia Care Complications: No immediate complications. Procedure: Pre-Anesthesia Assessment: - Prior to the procedure, a History and Physical was performed, and patient medications and allergies were reviewed. The patient's tolerance of previous anesthesia was also reviewed. The risks and benefits of the procedure and the sedation options and risks were discussed with the patient. All questions were answered, and informed consent was obtained. Prior Anticoagulants: The patient has taken no previous anticoagulant or antiplatelet agents. ASA Grade Assessment: III - A patient with severe systemic disease. After reviewing the risks and benefits, the patient was deemed in satisfactory condition to undergo the procedure. After obtaining informed consent, the endoscope was passed under direct vision. Throughout the procedure, the patient's blood pressure, pulse, and oxygen saturations were monitored continuously. The Endoscope [id number] was introduced through the mouth, and advanced to the second part of duodenum. The upper GI endoscopy was accomplished without difficulty. The patient tolerated the procedure well. Findings: Esophagogastric landmarks were identified: the Z-line was found at 36 cm from the incisors. LA Grade C (one or more mucosal breaks continuous between tops of 2 or more mucosal folds, less than 75% circumference) esophagitis with no bleeding was found. Three columns of trace/small varices were seen in the distal esophagus that completely flattened upon insufflation. No bands were required. A 3 cm hiatus hernia was present. Mild portal hypertensive gastropathy was found in the gastric fundus and in the gastric body. Retroflexion was performed and no gastric varices were seen. The examined duodenum was normal. Impression: - Esophagogastric landmarks identified. - LA Grade C esophagitis. - 3 cm hiatus hernia. - Three columns of trace varices were seen in the distal esophagus that completely flattened upon insufflation. No bands were required. - Portal hypertensive gastropathy. Retroflexion was performed and no gastric varices were seen. - Normal examined duodenum. - No specimens collected. Estimated Blood Loss: Estimated blood loss: none. Recommendation: - Patient has a contact number available for emergencies. The signs and symptoms of potential delayed complications were discussed with the patient. Return to normal activities tomorrow. Written discharge instructions were provided to the patient. - Resume previous diet. - Continue PPI BID - Return to floor. - Repeat EGD in 3 months to assess healing of esophagitis Scope In: 12:47:14 PM Scope Out: 12:52:10 PM Total Procedure Duration Time 0 hours 4 minutes 56 seconds Procedure Code(s): --- Professional --- 11245, Esophagogastroduodenoscopy, flexible, transoral; diagnostic, including collection of specimen(s) by brushing or washing, when performed (separate procedure) Diagnosis Code(s): --- Professional --- K20.9, Esophagitis, unspecified K44.9, Diaphragmatic hernia without obstruction or gangrene K76.6, Portal hypertension K31.89, Other diseases of stomach and duodenum CPT copyright 2015 [employer]. All rights reserved. The codes documented in this report are preliminary and upon laboratory director review may be revised to meet current compliance requirements. Attending Participation: I was present and participated during the entire procedure, including non-garrison portions. MD Jg Quintero MD 09/12/2016 1:04:55 PM The attending physician has electronically signed and finalized this document. MD Natalie De La Rosa MD 09/12/2016 12:58:22 PM Number of Addenda: 0 Note Initiated On: 09/12/2016 12:14 PM TYPE & CROSSMATCH (09/12/2016 9:44 AM) Component Value Range Units Ordered 0 Crossmatch Expires 09/15/2016 Record Check 2ND TYPE REQUIRED ABO/RH(D) AB POS Antibody Screen POS Antibody Indentification Anti-M, NAZIA, Broad Spectrum NEG Magen Antigen Information Naima antigen NEG, S antigen NEG, Fy(a) antigen NEG, E antigen NEG, M antigen NEG, Additional AB Panel 4 Specimen Blood CBC (09/12/2016 9:44 AM)Only the most recent of 2 results within the time period is included. Component Value Range White Blood Cells 5.8 4.5-11.0 K/UL RBC 2.28 (L) 4.0-5.0 M/UL Hemoglobin 7.7 (L) 12.0-15.0 GM/DL Hematocrit 22.5 (L) 36-45 % MCV 98.5 80-100 FL MCH 33.7 26-34 PG MCHC 34.2 32.0-36.0 G/DL RDW 27.3 (H) 11-15 % Platelet Count 69 (L) 150-400 K/UL MPV 6.4 (L) 7-11 FL Specimen Blood ECG-SCAN (09/12/2016 6:50 AM) Narrative Ordered by an unspecified provider. COMPREHENSIVE METABOLIC PANEL (09/12/2016 4:12 AM)Only the most recent of 4 results within the time period is included. Component Value Range Sodium 131 (L) 137-147 MMOL/L Potassium 4.4 3.5-5.1 MMOL/L Chloride 104 98-110 MMOL/L Glucose 86 70-100 MG/DL Blood Urea Nitrogen 14 7-25 MG/DL Creatinine 0.84 0.4-1.00 MG/DL Calcium 8.6 8.5-10.6 MG/DL Total Protein 5.4 (L) 6.0-8.0 G/DL Total Bilirubin 12.3 (H) 0.3-1.2 MG/DL Albumin 2.7 (L) 3.5-5.0 G/DL Alk Phosphatase 117 (H) 25-110 U/L AST (SGOT) 33 7-40 U/L CO2 21 21-30 MMOL/L ALT (SGPT) 16 7-56 U/L Anion Gap 6 3-12 eGFR Non >60Comment: >60 mL/min The eGFR is not validated for use in drug dosing adjustments. Continue to use estimated creatinine clearance per dosing reference text. Please contact the Clinical Pharmacist for questions. eGFR >60Comment: >60 mL/min The eGFR is not validated for use in drug dosing adjustments. Continue to use estimated creatinine clearance per dosing reference text. Please contact the Clinical Pharmacist for questions. Specimen Blood PROTIME INR (PT) (09/12/2016 4:12 AM)Only the most recent of 4 results within the time period is included. Component Value Range INR 1.7 (H) 0.8-1.2 Specimen Blood CBC AND DIFF (09/12/2016 4:12 AM)Only the most recent of 4 results within the time period is included. Component Value Range White Blood Cells 4.7 4.5-11.0 K/UL RBC 2.08 (L) 4.0-5.0 M/UL Hemoglobin 6.9 (L) 12.0-15.0 GM/DL Hematocrit 20.3 (L) 36-45 % MCV 97.9 80-100 FL MCH 33.5 26-34 PG MCHC 34.2 32.0-36.0 G/DL RDW 27.6 (H) 11-15 % Platelet Count 68 (L) 150-400 K/UL MPV 6.3 (L) 7-11 FL Neutrophils 71 41-77 % Lymphocytes 17 (L) 24-44 % Monocytes 10 4-12 % Eosinophils 2 0-5 % Basophils 0 0-2 % Absolute Neutrophil Count 3.30 1.8-7.0 K/UL Absolute Lymph Count 0.80 (L) 1.0-4.8 K/UL Absolute Monocyte Count 0.50 0-0.80 K/UL Absolute Eosinophil Count 0.10 0-0.45 K/UL Absolute Basophil Count 0.00 0-0.20 K/UL Specimen Blood ECG-SCAN (09/11/2016 1:05 PM) Narrative Ordered by an unspecified provider. ECG-SCAN (09/11/2016 1:05 PM) Narrative Ordered by an unspecified provider. 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 Maggy Gray, BEATRIS LVIDD 5.1 3.9-5.3 cm LVIDS 3.0 cm IVS 0.9 0.6-0.9 cm PW 0.9 0.6-0.9 cm FS 41.18 28-44 % EF 70.01 % LA size 5.2 2.7-3.8 cm LA volume 125.3 22-52 mL Left Atrium Index 54.72 10-32 Right Ventricular Basal 4.8 cm (2.4-4.2) Diameter Right Atrial Area 23.2 cm2 (<=18) Right Ventricular Mid 3.4 cm (2.0-3.5) Diameter Right Ventricular Long 9.8 cm (5.6-8.6) Diameter Sinus 3.0 2.1-3.5 cm LVOT diameter 2.2 cm LVOT area 3.80 cm2 LVOT peak nick 1.3 m/s LVOT peak VTI 32.0 cm AV peak velocity 3.8 m/s Ao VTI 103.0 cm Aortic valve area= 1.18 cm2 , with a mean gradient of 43 mmHg and a peak gradient of 58 mmHg AV index (nez perce) 0.34 AV regurgitation pressure 367 msec 1/2 time TV rest pulmonary artery 46 mmHg pressure E/A ratio 1.17 TDI e' 0.110 m/s E/E' ratio 12.73 MV Peak E Nick PW 1.400 m/s MV Peak A Nick 1.200 m/s LVOT stroke volume 121.60 cm3 Narrative 1.Moderate aortic stenosis.Trace regurgitation. 2.Normal left ventricular ejection fraction.Moderate diastolic dysfunction and elevated filling pressure. 3.Elevated pulmonary artery pressure. 4.Normal right ventricle size and ejection fraction. 5.No previous echocardiogram for comparison. HAPTOGLOBIN (09/10/2016 9:50 AM) Component Value Range Haptoglobin <30 16-200 MG/DL Specimen Blood LDH-LACTATE DEHYDROGENASE (09/10/2016 9:50 AM) Component Value Range Lactate Dehydrogenase 289 (H) 100-210 U/L Specimen Blood US ABDOMEN COMPLETE (09/10/2016 8:28 AM) Impressions 1. Continued findings of cirrhosis and portal venous hypertension as manifested by moderate splenomegaly and trace ascites. 2. Large anechoic subhepatic structure adjacent to the pancreatic head may represent a pancreatic pseudocyst, biloma or seroma. 3. Incomplete color fill in of the splenic vein at midline compatible with chronic thrombus seen on recent CT abdomen pelvis. 4. Bidirectional flow of the left portal vein due to advanced portal venous hypertension. 5. Small right pleural effusion. Approved by Anay White M.D. on 09/10/2016 11:59 AM By my electronic signature, I attest that I have personally reviewed the images for this examination and formulated the interpretations and opinions expressed in this report Finalized by Elena Ruelas M.D. on 09/10/2016 1:30 PM. Dictated by Anay White M.D. on 09/10/2016 10:21 AM. Narrative Abdominal Duplex Ultrasound Clinical Indication: Altered mental status, liver disease Technique: Multiple real-time grayscale sonographic images were obtained throughout the abdomen with additional color Doppler and duplex acquisitions. Findings: Comparison: CT abdomen pelvis 10/07/2016 The liver demonstrates heterogeneous echotexture and nodular contour compatible cirrhosis measuring 14.5 cm. No focal liver lesions are identified. No intrahepatic biliary ductal dilatation is present. The extrahepatic common duct measures 0.4 cm. The gallbladder is absent. Visualized portions of the pancreas are unremarkable. There is a well-circumscribed anechoic subhepatic structure adjacent to the pancreatic head measuring 6.3 x 5.2 cm. The spleen appears normal measuring 16.1 cm in length. The right kidney measures 11.3 x 4.3 cm. The left kidney measures 12.3 x 3.5 cm. No hydronephrosis, nephrolithiasis or solid renal mass is seen in either kidney. The urinary bladder is unremarkable. There is trace perihepatic ascites. Visualized portions of the aorta and IVC are unremarkable. The main portal vein is hepatopetal with peak velocity 32 cm/sec. The right portal vein is are patent and demonstrate normal hepatopetal flow. There is mild bidirectional flow of the left portal vein. The splenic vein demonstrates incomplete color fill in midline suggesting chronic thrombus as seen on recent CT abdomen pelvis. The IVC has normal pulsatility and flow. The hepatic veins show normal antegrade flow with pulsatility. The hepatic arteries show normal hepatopetal flow. The resistive index of the proper hepatic artery is 0.81. There is a small right pleural effusion. Procedure Note Interface, Radiant Results - SatSep 10, 2016 1:33 PM [employer] Abdominal Duplex Ultrasound Clinical Indication: Altered mental status, liver disease Technique: Multiple real-time grayscale sonographic images were obtained throughout the abdomen with additional color Doppler and duplex acquisitions. Findings: Comparison: CT abdomen pelvis 10/07/2016 The liver demonstrates heterogeneous echotexture and nodular contour compatible cirrhosis measuring 14.5 cm. No focal liver lesions are identified. No intrahepatic biliary ductal dilatation is present. The extrahepatic common duct measures 0.4 cm. The gallbladder is absent. Visualized portions of the pancreas are unremarkable. There is a well-circumscribed anechoic subhepatic structure adjacent to the pancreatic head measuring 6.3 x 5.2 cm. The spleen appears normal measuring 16.1 cm in length. The right kidney measures 11.3 x 4.3 cm. The left kidney measures 12.3 x 3.5 cm. No hydronephrosis, nephrolithiasis or solid renal mass is seen in either kidney. The urinary bladder is unremarkable. There is trace perihepatic ascites. Visualized portions of the aorta and IVC are unremarkable. The main portal vein is hepatopetal with peak velocity 32 cm/sec. The right portal vein is are patent and demonstrate normal hepatopetal flow. There is mild bidirectional flow of the left portal vein. The splenic vein demonstrates incomplete color fill in midline suggesting chronic thrombus as seen on recent CT abdomen pelvis. The IVC has normal pulsatility and flow. The hepatic veins show normal antegrade flow with pulsatility. The hepatic arteries show normal hepatopetal flow. The resistive index of the proper hepatic artery is 0.81. There is a small right pleural effusion. IMPRESSION 1. Continued findings of cirrhosis and portal venous hypertension as manifested by moderate splenomegaly and trace ascites. 2. Large anechoic subhepatic structure adjacent to the pancreatic head may represent a pancreatic pseudocyst, biloma or seroma. 3. Incomplete color fill in of the splenic vein at midline compatible with chronic thrombus seen on recent CT abdomen pelvis. 4. Bidirectional flow of the left portal vein due to advanced portal venous hypertension. 5. Small right pleural effusion. Approved by Anay White M.D. on 09/10/2016 11:59 AM By my electronic signature, I attest that I have personally reviewed the images for this examination and formulated the interpretations and opinions expressed in this report Finalized by Elena Ruelas M.D. on 09/10/2016 1:30 PM. Dictated by Anay White M.D. on 09/10/2016 10:21 AM. US DOPPLER ABD PELV RETROPER COMP (09/10/2016 8:28 AM) Impressions 1. Continued findings of cirrhosis and portal venous hypertension as manifested by moderate splenomegaly and trace ascites. 2. Large anechoic subhepatic structure adjacent to the pancreatic head may represent a pancreatic pseudocyst, biloma or seroma. 3. Incomplete color fill in of the splenic vein at midline compatible with chronic thrombus seen on recent CT abdomen pelvis. 4. Bidirectional flow of the left portal vein due to advanced portal venous hypertension. 5. Small right pleural effusion. Approved by Anay White M.D. on 09/10/2016 11:59 AM By my electronic signature, I attest that I have personally reviewed the images for this examination and formulated the interpretations and opinions expressed in this report Finalized by Elena Ruelas M.D. on 09/10/2016 1:30 PM. Dictated by Anay White M.D. on 09/10/2016 10:21 AM. Narrative Abdominal Duplex Ultrasound Clinical Indication: Altered mental status, liver disease Technique: Multiple real-time grayscale sonographic images were obtained throughout the abdomen with additional color Doppler and duplex acquisitions. Findings: Comparison: CT abdomen pelvis 10/07/2016 The liver demonstrates heterogeneous echotexture and nodular contour compatible cirrhosis measuring 14.5 cm. No focal liver lesions are identified. No intrahepatic biliary ductal dilatation is present. The extrahepatic common duct measures 0.4 cm. The gallbladder is absent. Visualized portions of the pancreas are unremarkable. There is a well-circumscribed anechoic subhepatic structure adjacent to the pancreatic head measuring 6.3 x 5.2 cm. The spleen appears normal measuring 16.1 cm in length. The right kidney measures 11.3 x 4.3 cm. The left kidney measures 12.3 x 3.5 cm. No hydronephrosis, nephrolithiasis or solid renal mass is seen in either kidney. The urinary bladder is unremarkable. There is trace perihepatic ascites. Visualized portions of the aorta and IVC are unremarkable. The main portal vein is hepatopetal with peak velocity 32 cm/sec. The right portal vein is are patent and demonstrate normal hepatopetal flow. There is mild bidirectional flow of the left portal vein. The splenic vein demonstrates incomplete color fill in midline suggesting chronic thrombus as seen on recent CT abdomen pelvis. The IVC has normal pulsatility and flow. The hepatic veins show normal antegrade flow with pulsatility. The hepatic arteries show normal hepatopetal flow. The resistive index of the proper hepatic artery is 0.81. There is a small right pleural effusion. Procedure Note Interface, Radiant Results - SatSep 10, 2016 1:33 PM [employer] Abdominal Duplex Ultrasound Clinical Indication: Altered mental status, liver disease Technique: Multiple real-time grayscale sonographic images were obtained throughout the abdomen with additional color Doppler and duplex acquisitions. Findings: Comparison: CT abdomen pelvis 10/07/2016 The liver demonstrates heterogeneous echotexture and nodular contour compatible cirrhosis measuring 14.5 cm. No focal liver lesions are identified. No intrahepatic biliary ductal dilatation is present. The extrahepatic common duct measures 0.4 cm. The gallbladder is absent. Visualized portions of the pancreas are unremarkable. There is a well-circumscribed anechoic subhepatic structure adjacent to the pancreatic head measuring 6.3 x 5.2 cm. The spleen appears normal measuring 16.1 cm in length. The right kidney measures 11.3 x 4.3 cm. The left kidney measures 12.3 x 3.5 cm. No hydronephrosis, nephrolithiasis or solid renal mass is seen in either kidney. The urinary bladder is unremarkable. There is trace perihepatic ascites. Visualized portions of the aorta and IVC are unremarkable. The main portal vein is hepatopetal with peak velocity 32 cm/sec. The right portal vein is are patent and demonstrate normal hepatopetal flow. There is mild bidirectional flow of the left portal vein. The splenic vein demonstrates incomplete color fill in midline suggesting chronic thrombus as seen on recent CT abdomen pelvis. The IVC has normal pulsatility and flow. The hepatic veins show normal antegrade flow with pulsatility. The hepatic arteries show normal hepatopetal flow. The resistive index of the proper hepatic artery is 0.81. There is a small right pleural effusion. IMPRESSION 1. Continued findings of cirrhosis and portal venous hypertension as manifested by moderate splenomegaly and trace ascites. 2. Large anechoic subhepatic structure adjacent to the pancreatic head may represent a pancreatic pseudocyst, biloma or seroma. 3. Incomplete color fill in of the splenic vein at midline compatible with chronic thrombus seen on recent CT abdomen pelvis. 4. Bidirectional flow of the left portal vein due to advanced portal venous hypertension. 5. Small right pleural effusion. Approved by Anay White M.D. on 09/10/2016 11:59 AM By my electronic signature, I attest that I have personally reviewed the images for this examination and formulated the interpretations and opinions expressed in this report Finalized by Elena Ruelas M.D. on 09/10/2016 1:30 PM. Dictated by Anay White M.D. on 09/10/2016 10:21 AM. PHENCYCLIDINES-URINE RANDOM (09/10/2016 4:50 AM) Component Value Range Phencyclidine (PCP) NEGComment: NEG-NEG RESULTS WERE OBTAINED BY IMMUNOASSAY AND ARE PRESUMPTIVE ONLY. POSITIVE INDICATES THE PRESENCE OF SUBSTANCE WITH CHARACTERISTICS SIMILAR TO DRUG-DRUG CLASS OR METABOLITE IN CONC. EQUAL TO OR EXCEEDING VALUES LISTED. PHENCYCLIDINE (PCP) 25 NG/ML Specimen Urine OPIATES-URINE RANDOM (09/10/2016 4:50 AM) Component Value Range Opiates-Urine NEGComment: NEG-NEG RESULTS WERE OBTAINED BY IMMUNOASSAY AND ARE PRESUMPTIVE ONLY. POSITIVE INDICATES THE PRESENCE OF SUBSTANCE WITH CHARACTERISTICS SIMILAR TO DRUG-DRUG CLASS OR METABOLITE IN CONC. EQUAL TO OR EXCEEDING VALUES LISTED. OPIATES 200 0 NG/ML Specimen Urine COCAINE-URINE RANDOM (09/10/2016 4:50 AM) Component Value Range Cocaine-Urine NEGComment: NEG-NEG RESULTS WERE OBTAINED BY IMMUNOASSAY AND ARE PRESUMPTIVE ONLY. POSITIVE INDICATES THE PRESENCE OF SUBSTANCE WITH CHARACTERISTICS SIMILAR TO DRUG-DRUG CLASS OR METABOLITE IN CONC. EQUAL TO OR EXCEEDING VALUES LISTED. COCAINE 300 NG/ML Specimen Urine CANNABINOIDS-URINE RANDOM (09/10/2016 4:50 AM) Component Value Range THC NEGComment: NEG-NEG RESULTS WERE OBTAINED BY IMMUNOASSAY AND ARE PRESUMPTIVE ONLY. POSITIVE INDICATES THE PRESENCE OF SUBSTANCE WITH CHARACTERISTICS SIMILAR TO DRUG-DRUG CLASS OR METABOLITE IN CONC. EQUAL TO OR EXCEEDING VALUES LISTED. CANNABINOIDS 50 NG/ML Specimen Urine BENZODIAZEPINES-URINE RANDOM (09/10/2016 4:50 AM) Component Value Range Benzodiazepines NEGComment: NEG-NEG RESULTS WERE OBTAINED BY IMMUNOASSAY AND ARE PRESUMPTIVE ONLY. POSITIVE INDICATES THE PRESENCE OF SUBSTANCE WITH CHARACTERISTICS SIMILAR TO DRUG-DRUG CLASS OR METABOLITE IN CONC. EQUAL TO OR EXCEEDING VALUES LISTED. BENZODIAZEPINES 200 NG/ML Specimen Urine BARBITURATES-URINE RANDOM (09/10/2016 4:50 AM) Component Value Range Barbiturates,Urine NEGComment: NEG-NEG RESULTS WERE OBTAINED BY IMMUNOASSAY AND ARE PRESUMPTIVE ONLY. POSITIVE INDICATES THE PRESENCE OF SUBSTANCE WITH CHARACTERISTICS SIMILAR TO DRUG-DRUG CLASS OR METABOLITE IN CONC. EQUAL TO OR EXCEEDING VALUES LISTED. BARBITURATES 200 NG/ML Specimen Urine AMPHETAMINES-URINE RANDOM (09/10/2016 4:50 AM) Component Value Range Amphetamines NEGComment: NEG-NEG RESULTS WERE OBTAINED BY IMMUNOASSAY AND ARE PRESUMPTIVE ONLY. POSITIVE INDICATES THE PRESENCE OF SUBSTANCE WITH CHARACTERISTICS SIMILAR TO DRUG-DRUG CLASS OR METABOLITE IN CONC. EQUAL TO OR EXCEEDING VALUES LISTED. AMPHETAMINES 1000 NG/ML Specimen Urine RETICULOCYTE COUNT (09/10/2016 12:09 AM) Component Value Range Retic, Uncorrected 12.9 (H) 0.5-2.0 % Retic, Corrected 6.9 % Retic, Absolute 295.9 (H) 30-94 K/UL Specimen Blood FOLATE, SERUM (09/10/2016 12:09 AM) Component Value Range Serum Folate 18.3Comment: NOTE NEW REFERENCE RANGES >3.9 NG/ML Specimen Blood IRON + BINDING CAPACITY + %SAT (09/10/2016 12:09 AM) Component Value Range Iron 122 50-160 MCG/DL Iron Binding-TIBC 282 270-380 MCG/DL % Saturation 43 (H) 28-42 % Specimen Blood VITAMIN B12 (09/10/2016 12:09 AM) Component Value Range Vitamin B12 1246 (H) 180-914 PG/ML Specimen Blood FERRITIN (09/10/2016 12:09 AM) Component Value Range Ferritin 75 10-200 NG/ML Specimen Blood UA REFLEX CULTURE LABEL (09/09/2016 10:42 PM) Component Value Range UA Reflex Culture LAB LABEL Specimen Urine URINALYSIS MICROSCOPIC REFLEX TO CULTURE (09/09/2016 10:42 PM) Component Value Range WBCs,UA 20-50 0-2 /HPF RBCs,UA 2-10 0-3 /HPF Comment,UA Urine submitted for reflex culture if criteria are met:WBC>10, positive nitrite and/or positive leukocyte esterase. If quantity is not sufficient, an addendum will follow. MucousUA TRACE Bacteria,UA MANY (A) NEG-NEG Squamous Epithelial Cells 0-2 0-5 Amorphous Sedimate,UA FEW Specimen Urine URINALYSIS DIPSTICK REFLEX TO CULTURE (09/09/2016 10:42 PM) Component Value Range Color,UA JIM Turbidity,UA 1+ (A) CLEAR-CLEAR Specific [place]-Urine 1.014 1.003-1.035 pH,UA 7.0 5.0-8.0 Protein,UA 1+ (A) NEG-NEG Glucose,UA NEG NEG-NEG Ketones,UA NEG NEG-NEG Bilirubin,UA NEG NEG-NEG Blood,UA NEG NEG-NEG Urobilinogen,UA INCREASED (A) NORM-NORMAL Nitrite,UA POS (A) NEG-NEG Leukocytes,UA 1+ (A) NEG-NEG Urine Ascorbic Acid, UA NEG NEG-NEG Specimen Urine CULTURE-URINE W/SENSITIVITY (09/09/2016 10:42 PM) Component Value Range Battery Name URINE CULTURE Specimen Description URINE Special Requests NONE Culture >100,000 organisms/ml STAPHYLOCOCCUS, COAGULASE NEGATIVE, NOT S. SAPROPHYTICUS (A) Report Status FINAL 09/12/2016 Organism ID >100,000 organisms/ml STAPHYLOCOCCUS, COAGULASE NEGATIVE, NOT S. SAPROPHYTICUS Organism ID >100,000 organisms/ml STAPHYLOCOCCUS, COAGULASE NEGATIVE, NOT S. SAPROPHYTICUS Specimen Urine Organism Antibiotic Method Susceptibility >100,000 organisms/ml staphylococcus, Trimethsulfa BOWERS RESISTANT: Resistant coagulase negative, not s. saprophyticus [place] >100,000 organisms/ml staphylococcus, Method BOWERS BOWERS [place] coagulase negative, not s. saprophyticus [place] >100,000 organisms/ml staphylococcus, Nitrofurantoin FADIA <=16 SUSCEPTIBLE: coagulase negative, not s. saprophyticus (MCG/ML) Susceptible INTERPRETA TION >100,000 organisms/ml staphylococcus, Oxacillin FADIA <=0.25 SUSCEPTIBLE: coagulase negative, not s. saprophyticus (MCG/ML) Susceptible INTERPRETA TION >100,000 organisms/ml staphylococcus, Vancomycin FADIA <=0.5 SUSCEPTIBLE: coagulase negative, not s. saprophyticus (MCG/ML) Susceptible INTERPRETA TION >100,000 organisms/ml staphylococcus, Method FADIA FADIA (MCG/ML) coagulase negative, not s. saprophyticus (MCG/ML) INTERPRETATION INTERPRETA TION CHEST SINGLE VIEW (09/09/2016 7:58 PM) Impressions Mild pulmonary venous congestion compatible with volume expansion or mild CHF. Approved by Navin Lassiter M.D. on 09/10/2016 7:18 AM By my electronic signature, I attest that I have personally reviewed the images for this examination and formulated the interpretations and opinions expressed in this report Finalized by Kayode Davies M.D. on 09/10/2016 7:44 AM. Dictated by Navin Lassiter M.D. on 09/09/2016 11:44 PM. Narrative CHEST SINGLE VIEW Clinical Indication: Female, 56 years old. End-stage liver disease, hepatic encephalopathy, esophageal varices, confusion and the lethargy Comparison: CT abdomen/pelvis same day Findings: Kayode Davies M.D. has personally reviewed these images and formulated the interpretations and opinions expressed in this report. Cardiac silhouette is normal in size. Mild pulmonary venous congestion. No focal consolidation, pleural effusion, or pneumothorax. Scattered areas of scarring. Right curvature of the thoracic spine. Procedure Note Interface, Radiant Results - SatSep 10, 2016 7:47 AM [employer] CHEST SINGLE VIEW Clinical Indication: Female, 56 years old. End-stage liver disease, hepatic encephalopathy, esophageal varices, confusion and the lethargy Comparison: CT abdomen/pelvis same day Findings: Kayode Davies M.D. has personally reviewed these images and formulated the interpretations and opinions expressed in this report. Cardiac silhouette is normal in size. Mild pulmonary venous congestion. No focal consolidation, pleural effusion, or pneumothorax. Scattered areas of scarring. Right curvature of the thoracic spine. IMPRESSION Mild pulmonary venous congestion compatible with volume expansion or mild CHF. Approved by Navin Lassiter M.D. on 09/10/2016 7:18 AM By my electronic signature, I attest that I have personally reviewed the images for this examination and formulated the interpretations and opinions expressed in this report Finalized by Kayode Davies M.D. on 09/10/2016 7:44 AM. Dictated by Navin Lassiter M.D. on 09/09/2016 11:44 PM. INFLUENZA A/B AG (RAPID TEST) (09/09/2016 7:39 PM) Component Value Range Battery Name INFLUENZA A/B ANTIGEN Specimen Description NASOPHARYNGEAL SWAB Special Requests NONE Direct Antigen NEGATIVE FOR INFLUENZA A/B Report Status FINAL 09/09/[address] ABD/PELV WO CONTRAST (09/09/2016 7:03 PM) Impressions 1. Simple fluid density structure at the right portacaval region which is not well delineated from the common duct. This could represent a markedly dilated bile duct, pancreatic pseudocyst, biloma, seroma, or less likely a loculated collection of ascites. This does not have an appearance of an acute hematoma or abscess. 2. Prior small bowel anastomoses, without bowel obstruction. 3. Cirrhosis with portal hypertension manifested by numerous portosystemic varices and moderate splenomegaly. Some peripheral calcification noted about the main portal vein and central splenic vein is compatible with chronic venous thrombus. 4. Anemia. 5. Very small right pleural effusion. 6. Mild cardiomegaly. 7. Left adnexal cystic structure most consistent with a mildly complex, benign ovarian cystic lesion. This could be further evaluated by nonemergent pelvic ultrasound, if not previously worked up. By my electronic signature, I attest that I have personally reviewed the images for this examination and formulated the interpretations and opinions expressed in this report Finalized by Jordi Dee M.D. on 09/09/2016 7:50 PM. Dictated by Navin Lassiter M.D. on 09/09/2016 7:[address] Abdomen and Pelvis Clinical Indication:Female, 56 years old. End-stage liver disease, possible cystic mass ultrasound. Technique: Multiple contiguous axial CT images were obtained through the abdomen and pelvis without IV contrast. Post processing coronal and sagittal reconstruction images were made from the axial images. IV contrast: None. Bowel contrast:None Comparison: None FINDINGS: Jordi Dee M.D. has personally reviewed these images and formulated the interpretations and opinions expressed in this report. Limited evaluation without the use of IV contrast which includes the viscera and vasculature. Lower Thorax: There is a very small right pleural effusion. Heart is mildly enlarged without pericardial effusion. Mitral annular calcifications. Low- attenuation of the cardiac blood pool compared to the myocardium compatible with anemia. Numerous gastroesophageal varices. Liver and Biliary system: Liver is normal in size with nodular contour compatible with cirrhosis. No suspicious, hypodense lesions within the liver parenchyma. Prior cholecystectomy. No intrahepatic biliary ductal dilatation. Simple fluid structure is located in the portacaval region measuring 6.8 x 5.1 cm on (series 2 image 27). This fluid density structure has no thick ortiz or focal fat stranding adjacent, difficult to separate from the extrahepatic duct. Spleen: Moderately enlarged spleen. Numerous portosystemic varices. Adrenal Glands and Kidneys: Unremarkable. Pancreas and Retroperitoneum: Unremarkable. Aorta and Major Vessels: Abdominal aorta is normal in caliber with scattered calcified atherosclerosis. Peripheral calcifications are noted along the main portal vein and central splenic vein near midline, likely from remote thrombus. Bowel, Mesentery and Peritoneal space: No abnormal large or small bowel dilatation to indicate obstruction. A small bowel anastomosis is seen in the anterior abdomen with mild dilatation at the anastomosis, likely baseline for patient, with no proximal or distal distention to indicate obstruction. Additional small bowel anastomosis in the right lower quadrant is noted and appears unremarkable. Mildly increased fecal material throughout the colon and rectum. No significant abdominal ascites. No pneumoperitoneum. Prior bowel resection with suture material noted in the mid abdomen. Pelvis: Urinary bladder is grossly unremarkable. Uterus is surgically absent. No pelvic lymphadenopathy. Within the left adnexal region there is a fluid density structure measuring approximately 3 x 2.1 cm (series 2, image 65), containing simple fluid density with probable thin septation. Abdominal wall and Osseous Structures: Prior midline laparotomy with scarring at the incision site. Lumbar spondylosis. No destructive osseous lesion, with bones are overall appearing mildly demineralized. Mild diffuse body wall edema. Procedure Note Interface, Radiant Results - Sun Sep 09, 2016 7:53 PM [employer] CT Abdomen and Pelvis Clinical Indication: Female, 56 years old. End-stage liver disease, possible cystic mass ultrasound. Technique: Multiple contiguous axial CT images were obtained through the abdomen and pelvis without IV contrast. Post processing coronal and sagittal reconstruction images were made from the axial images. IV contrast: None. Bowel contrast: None Comparison: None FINDINGS: Jordi Dee M.D. has personally reviewed these images and formulated the interpretations and opinions expressed in this report. Limited evaluation without the use of IV contrast which includes the viscera and vasculature. Lower Thorax: There is a very small right pleural effusion. Heart is mildly enlarged without pericardial effusion. Mitral annular calcifications. Low- attenuation of the cardiac blood pool compared to the myocardium compatible with anemia. Numerous gastroesophageal varices. Liver and Biliary system: Liver is normal in size with nodular contour compatible with cirrhosis. No suspicious, hypodense lesions within the liver parenchyma. Prior cholecystectomy. No intrahepatic biliary ductal dilatation. Simple fluid structure is located in the portacaval region measuring 6.8 x 5.1 cm on (series 2 image 27). This fluid density structure has no thick ortiz or focal fat stranding adjacent, difficult to separate from the extrahepatic duct. Spleen: Moderately enlarged spleen. Numerous portosystemic varices. Adrenal Glands and Kidneys: Unremarkable. Pancreas and Retroperitoneum: Unremarkable. Aorta and Major Vessels: Abdominal aorta is normal in caliber with scattered calcified atherosclerosis. Peripheral calcifications are noted along the main portal vein and central splenic vein near midline, likely from remote thrombus. Bowel, Mesentery and Peritoneal space: No abnormal large or small bowel dilatation to indicate obstruction. A small bowel anastomosis is seen in the anterior abdomen with mild dilatation at the anastomosis, likely baseline for patient, with no proximal or distal distention to indicate obstruction. Additional small bowel anastomosis in the right lower quadrant is noted and appears unremarkable. Mildly increased fecal material throughout the colon and rectum. No significant abdominal ascites. No pneumoperitoneum. Prior bowel resection with suture material noted in the mid abdomen. Pelvis: Urinary bladder is grossly unremarkable. Uterus is surgically absent. No pelvic lymphadenopathy. Within the left adnexal region there is a fluid density structure measuring approximately 3 x 2.1 cm (series 2, image 65), containing simple fluid density with probable thin septation. Abdominal wall and Osseous Structures: Prior midline laparotomy with scarring at the incision site. Lumbar spondylosis. No destructive osseous lesion, with bones are overall appearing mildly demineralized. Mild diffuse body wall edema. IMPRESSION 1. Simple fluid density structure at the right portacaval region which is not well delineated from the common duct. This could represent a markedly dilated bile duct, pancreatic pseudocyst, biloma, seroma, or less likely a loculated collection of ascites. This does not have an appearance of an acute hematoma or abscess. 2. Prior small bowel anastomoses, without bowel obstruction. 3. Cirrhosis with portal hypertension manifested by numerous portosystemic varices and moderate splenomegaly. Some peripheral calcification noted about the main portal vein and central splenic vein is compatible with chronic venous thrombus. 4. Anemia. 5. Very small right pleural effusion. 6. Mild cardiomegaly. 7. Left adnexal cystic structure most consistent with a mildly complex, benign ovarian cystic lesion. This could be further evaluated by nonemergent pelvic ultrasound, if not previously worked up. By my electronic signature, I attest that I have personally reviewed the images for this examination and formulated the interpretations and opinions expressed in this report Finalized by Jordi Dee M.D. on 09/09/2016 7:50 PM. Dictated by Navin Lassiter M.D. on 09/09/2016 7:[address] HEAD WO CONTRAST (09/09/2016 6:59 PM) Impressions No acute intracranial hemorrhage or mass effect. By my electronic signature, I attest that I have personally reviewed the images for this examination and formulated the interpretations and opinions expressed in this report Finalized by Jordi Dee M.D. on 09/09/2016 7:32 PM. Dictated by Navin Lassiter M.D. on 09/09/2016 7:12 PM. Narrative EXAM: CT HEAD HISTORY: 56-year-old female, AMS, TECHNIQUE: Multiple contiguous axial images were obtained of the brain without intravenous contrast. COMPARISON: None FINDINGS: Jordi Dee M.D. has personally reviewed these images and formulated the interpretations and opinions expressed in this report. The ventricles and subarachnoid spaces are normal in size and configuration. There is no midline shift or mass effect. The de león white matter interfaces are maintained. The basal cisterns are patent. There is no evidence of acute intracranial hemorrhage or extra-axial fluid collection. The mastoid air cells and visualized paranasal sinuses are well-aerated. Procedure Note Interface, Radiant Results - Sun Sep 09, 2016 7:36 PM [employer] EXAM: CT HEAD HISTORY: 56-year-old female, AMS, TECHNIQUE: Multiple contiguous axial images were obtained of the brain without intravenous contrast. COMPARISON: None FINDINGS: Jordi Dee M.D. has personally reviewed these images and formulated the interpretations and opinions expressed in this report. The ventricles and subarachnoid spaces are normal in size and configuration. There is no midline shift or mass effect. The de león white matter interfaces are maintained. The basal cisterns are patent. There is no evidence of acute intracranial hemorrhage or extra-axial fluid collection. The mastoid air cells and visualized paranasal sinuses are well-aerated. IMPRESSION No acute intracranial hemorrhage or mass effect. By my electronic signature, I attest that I have personally reviewed the images for this examination and formulated the interpretations and opinions expressed in this report Finalized by Jordi Dee M.D. on 09/09/2016 7:32 PM. Dictated by Navin Lassiter M.D. on 09/09/2016 7:12 PM. CULTURE-BLOOD W/SENSITIVITY (09/09/2016 5:52 PM)Only the most recent of 2 results within the time period is included. Component Value Range Battery Name BLOOD CULTURE Specimen Description BLOOD RIGHT WRIST aerobic bottle only Special Requests Culture performed on specimen with less than the recommended volume of 10 ml/bottle. Decreased volume will affect sensitivity of culture. Culture NO GROWTH 5 DAYS Report Status FINAL 09/15/2016 Specimen Blood POC GLUCOSE (09/09/2016 5:49 PM) Component Value Range Glucose, POC 137 (H) 70-100 MG/DL POC TROPONIN (09/09/2016 5:48 PM) Component Value Range Dharticb-X-BZL 0.00 0.00-0.05 NG/ML POC ED US GUIDED PARACENTESIS (09/09/2016 5:37 PM) Impressions [facility] - [id number] Ultrasound Exam Date: 09/09/2016 Exam Type: POC ED US GUIDED PARACENTESIS Ict Teacher: Manuel Hein Attending: Ruddy Jon Worksheet: ED-Paracentesis Clinical Indication(s) for Paracentesis: Abdominal Distention Views: Right Lower Quadrant - Transverse: Adequate Right Lower Quadrant - Longitudinal: Adequate Left Lower Quadrant - Tranverse: Adequate Left Lower Quadrant - Longitudinal: Adequate Findings: Left Lower Quadrant Free Fluid: NONE Right Lower Quadrant Free Fluid: NONE Other: simple cystic structure in RUQ measuring 6.49cm x 4.42cm. Images 5- 11 are mislabeled as RUQ but are actually pictures of the LUQ. Interpretation: No appreciable intraperitoneal fluid noted. Other: simple cystic structure in RUQ measuring 6.49cm x 4.42cm further delineated on CT Abd/pelvis. Physician Approval: Resident/Fellow Signature: Not signed Credentialed Physician: Signed by Ruddy Jon on Friday, September 09, 2016 at 11:06:39 PM Procedure Note Interface, Radiant Results - Sun Sep 09, 2016 11:07 PM [employer] IMPRESSION [facility] - [id number] Ultrasound Exam Date: 09/09/2016 Exam Type: POC ED US GUIDED PARACENTESIS Ict Teacher: Manuel Hein Attending: Ruddy Jon Worksheet: ED-Paracentesis Clinical Indication(s) for Paracentesis: Abdominal Distention Views: Right Lower Quadrant - Transverse: Adequate Right Lower Quadrant - Longitudinal: Adequate Left Lower Quadrant - Tranverse: Adequate Left Lower Quadrant - Longitudinal: Adequate Findings: Left Lower Quadrant Free Fluid: NONE Right Lower Quadrant Free Fluid: NONE Other: simple cystic structure in RUQ measuring 6.49cm x 4.42cm. Images 5-11 are mislabeled as RUQ but are actually pictures of the LUQ. Interpretation: No appreciable intraperitoneal fluid noted. Other: simple cystic structure in RUQ measuring 6.49cm x 4.42cm further delineated on CT Abd/pelvis. Physician Approval: Resident/Fellow Signature: Not signed Credentialed Physician: Signed by Ruddy Jon on Friday, September 09, 2016 at 11:06:39 PM PHOSPHORUS (09/09/2016 3:36 PM) Component Value Range Phosphorus 2.9 2.0-4.0 MG/DL MAGNESIUM (09/09/2016 3:36 PM) Component Value Range Magnesium 2.1 1.6-2.6 mg/dL LACTIC ACID(LACTATE) (09/09/2016 3:36 PM) Component Value Range Lactic Acid 2.9 (H) 0.5-2.0 MMOL/L Specimen Blood LIPASE (09/09/2016 3:36 PM) Component Value Range Lipase 36 11-82 U/L Specimen Blood AMMONIA (09/09/2016 3:36 PM) Component Value Range Ammonia 100 (H) 9-35 MCMOL/L Specimen Blood PTT (APTT) (09/09/2016 3:36 PM) Component Value Range APTT 34.2 24.0-40.0 SEC Specimen Blood
[2016-09-23] MEDS ORDERED: LACTATED RINGERS 1,000 ML IV ONE (22:13)
--- NOTE | 2016-09-23 22:13 | ED General ---
General Chief Complaint: Abdominal/GI Problems Stated Complaint: SOA/VOMITING Source of Information: Patient Exam Limitations: Other (PT IS VERY POOR HISTORIAN SHE IS TOO DROWSY TO STAY AWAKE TO COMPLETE A SENTENCE. ) History of Present Illness Time Seen by Provider: 22:10 Initial Comments PT ARRIVES VIA POV FROM HOME MULTIPLE COMPLAINTS C/O SHORTNESS OF BREATH C/O NAUSEA/VOMITING HAS CHRONIC GENERALIZED PAIN--STATES SHE TOOK MORPHINE 7.5 MG SOMETIME TODAY NO OTHER INFORMATION IS OBTAINABLE FROM PT, SHE IS TOO DROWSY AND FALLS ASLEEP MID-SENTENCE PT HAS END STAGE LIVER FAILURE-STATES SHE WAS JUST AT FOR ROUTINE APPOINTMENT FOR LIVER FAILURE, BUT CANNOT STATE ANYTHING ELSE MULTIPLE VISITS --8 IN LAST YEAR, MOST BEING FOR HEPATIC ENCEPHALOPATHY, WAS HOSPITALIZED AUG 12- FOR SAME. REPORTS THAT PT HAS VOMITED 2-3 TIMES TODAY HE STATES HE HAS GIVEN HER ALL OF HER MEDICATIONS TODAY, BUT DID NOT KEEP THEM ALL DOWN. HAS HAD LACTULOSE 4 TIMES TODAY, ACCORDING TO HAD BM YESTERDAY, BUT NO BM TODAY HE STATES SHE BEGAN TO C/O [id number] OF BREATH THIS EVENING HE REPORTS THAT PT WAS AT LAST WEEK AND WAS STARTED ON A NEW MEDICATIONS AND WAS GIVEN A 10 DAY SUPPLY OF SAMPLES, BUT HAVE NOT BEEN ABLE TO FILL RX YET DUE TO EXPENSE. PCP: DR. RODRÍGUEZ Allergies and Home Medications Allergies Coded Allergies: No Known Drug Allergies (Unverified , 03/22/13) Home Medications Furosemide 80 Mg Tablet 80 MG PO BID (Reported) L. Acidophilus/Bulgaricus 1 Each Tablet #90 1 TAB.CHEW PO AC Prescribed by: FRANK RODRÍGUEZ on 08/15/16 1104 Lactulose 20 Gm/30 Ml Solution #3600 20 GM PO Q6H Prescribed by: FRANK RODRÍGUEZ on 08/15/16 1104 Propranolol HCl 20 Mg Tablet #60 20 MG PO BID Prescribed by: FRANK RODRÍGUEZ on 08/15/16 1104 Ranitidine HCl 150 Mg Tablet 150 MG PO BID (Reported) Spironolactone 100 Mg Tablet 200 MG PO DAILY (Reported) TAKES 2 (100 MG) TABLETS Constitutional: see HPI (EXTREMELY LIMITED HISTORIAN) Respiratory: see HPI Gastrointestinal: see HPI Past Grouqfb-Gjoayi-Jjowdb Hx Patient Social History Smoking Status: Current Everyday Smoker Type Used: Cigarettes Recent Hopitalizations: Yes (08/12- FOR HEPATIC ENCEPHALOPATHY) Immunizations Up To Date Tetanus Booster (TDap): Unknown Date of Influenza Vaccine: May 06, 2015 Seasonal Allergies Seasonal Allergies: No Surgeries HX Surgeries: Yes (INTESTINAL BYPASS & REVERSAL--FOR WEIGHT LOSS;, EXPL. LAP-- MULTIPLE EXPLORATORY SURGERIES--AT LEAST 6, PER PT. 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: Hysterectomy Genitourinary Hx Genitourinary Disorders: No Gastrointestinal Hx Gastrointestinal Disorders: Yes (CHRONIC LIVER FAILURE; SPLENOMEGALY) Gastrointestinal Disorders: Colitis, Gastroesophageal Reflux, Liver Disease/ Jaundice, Esophageal Varices, Ulcer, Cirrhosis, Gall Bladder Disease Musculoskeletal Hx Musculoskeletal Disorders: Yes (CHRONIC GENERALIZED PAIN COMPLAINTS) Endocrine Hx Endocrine Disorders: Yes Endocrine Disorders: Lupus HEENT HX ENT Disorders: Yes HEENT Disorders: Cataract Cancer Hx Cancer: Yes Cancer: Cervical Psychosocial Hx Psychiatric Problems: No Integumentary HX Skin/Integumentary Disorder: Yes (venous stasis manuel lower ext ) Blood Transfusions Hx Blood Disorders: Yes (ANEMIA) Adverse Reaction to a Blood Tr: Yes (BLOOD BANK ALERT) Family Medical History Significant Family History: No Pertinent Family Hx, GI Disease Family Medial History: Cervical cancer 19 MOTHER FH: heart disease 19 FATHER Physical Exam Vital Signs Vital Sign - Last 12Hours 09/23/16 22:07 Temp 98.2 Pulse 85 Resp 16 B/P 148/73 Pulse Ox 93 O2 Delivery Nasal Cannula O2 Flow Rate 2 Capillary Refill : General Appearance: No Apparent Distress WD/WN Other (VERY DROWSY, FALLS ASLEEP MID SENTENCE. DOES NOT APPEAR TO BE DYSPNEIC OR IN ANY DISCOMFORT. SPEECH SLOW AND SLURRED) HEENT: Scleral Icterus (L) Scleral Icterus (R) Neck: Full Range of Motion Normal Inspection Non Tender SuppleNo JVD Respiratory: Normal Breath Sounds No Accessory Muscle Use No Respiratory Distress Cardiovascular: Regular Rate, Rhythm Systolic Murmur (2/6) Gastrointestinal: Normal Bowel Sounds Non Tender Hepatomegaly Other (ABDOMEN FIRM, NO APPARENT TENDERNESS) Back: No CVA Tenderness Extremity: Normal Range of Motion Non Tender Pedal Edema (2-3+ EDEMA WITH SEVERE CHRONIC VENOUS STASIS CHANGES AND WOODY INDURATION) Neurologic/Psychiatric: No Motor/Sensory Deficits (GROSSLY INTACT) placement manager II-XII Norm as Tested Other (MENTATION ABOVE) Skin: Jaundice (SEVERE) Progress/Results/Core Measures Results/Orders Lab Results Laboratory Tests Test 09/23/16 22:10 09/24/16 00:09 Range/Units Acetaminophen Level < 10 L 10-30 UG/ML Activated Partial Thromboplast Time 40 H 24-35 SEC Alanine Aminotransferase (ALT/SGPT) 35 0-55 U/L Albumin 3.4 3.2-4.5 G/DL Alkaline Phosphatase 194 H 40-136 U/L Ammonia 82 H 11-32 UMOL/L Amylase Level 66 25-125 U/L Anion Gap 13 5-14 MMOL/L Aspartate Amino Transf (AST/SGOT) 52 H 5-34 U/L B-Type Natriuretic Peptide 181.1 H <100.0 PG/ML BUN/Creatinine Ratio 17 Band Neutrophils 10 % Basophils # (Auto) 0.1 0.0-0.1 10^3/uL Basophils % (Manual) 1 % Basophils (%) (Auto) 1 0-10 % Blood Morphology Comment NORMAL Blood Urea Nitrogen 25 H 7-18 MG/DL Calcium Level 8.7 8.5-10.1 MG/DL Carbon Dioxide Level 21 21-32 MMOL/L Chloride Level 99 98-107 MMOL/L Creatine Kinase MB 1.9 <6.6 NG/ML Creatinine 1.44 H 0.60-1.30 MG/DL Eosinophils # (Auto) 0.4 H 0.0-0.3 10^3/uL Eosinophils % (Manual) 3 % Eosinophils (%) (Auto) 3 0-10 % Estimat Glomerular Filtration Rate 38 Glucose Level 145 H 70-105 MG/DL Hematocrit 28 L 35-52 % Hemoglobin 9.3 L 11.5-16.0 G/DL INR Comment 1.6 H 0.8-1.4 Lipase 71 8-78 U/L Lymphocytes # (Auto) 1.8 1.0-4.0 X 10^3 Lymphocytes % (Manual) 7 % Lymphocytes (%) (Auto) 13 12-44 % Magnesium Level 2.2 1.8-2.4 MG/DL Mean Corpuscular Hemoglobin 34 25-34 PG Mean Corpuscular Hemoglobin Concent 34 32-36 G/DL Mean Corpuscular Volume 100 H 80-99 FL Mean Platelet Volume 8.6 7.4-10.4 FL Metamyelocytes % 3 % Monocytes # (Auto) 1.8 H 0.0-1.0 X 10^3 Monocytes % (Manual) 7 % Monocytes (%) (Auto) 13 H 0-12 % Neutrophils # (Auto) 9.9 H 1.8-7.8 X 10^3 Neutrophils % (Manual) 69 % Neutrophils (%) (Auto) 71 42-75 % Platelet Count 162 130-400 10^3/uL Potassium Level 3.9 3.6-5.0 MMOL/L Prothrombin Time 18.4 H 12.2-14.7 SEC Red Blood Count 2.76 L 4.35-5.85 10^6/uL Red Cell Distribution Width 21.2 H 10.0-14.5 % Serum Alcohol < 10 <10 MG/DL Sodium Level 133 L 135-145 MMOL/L Total Bilirubin 17.7 H 0.1-1.0 MG/DL Total Creatine Kinase 47 29-168 U/L Total Protein 6.8 6.4-8.2 G/DL Troponin I < 0.30 <0.30 NG/ML White Blood Count 14.0 H 4.3-11.0 10^3/uL Ur Tricyclic Antidepressants Screen NEGATIVE NEGATIVE Urine Amphetamines Screen NEGATIVE NEGATIVE Urine Bacteria LARGE H /HPF Urine Barbiturates Screen NEGATIVE NEGATIVE Urine Benzodiazepines Screen NEGATIVE NEGATIVE Urine Bilirubin 1+ H NEGATIVE Urine Cannabinoids Screen NEGATIVE NEGATIVE Urine Casts NONE /LPF Urine Clarity SLIGHTLY CLOUDY Urine Cocaine Screen NEGATIVE NEGATIVE Urine Color JIM H Urine Crystals NONE /LPF Urine Culture Indicated YES Urine Glucose (UA) NEGATIVE NEGATIVE Urine Ketones NEGATIVE NEGATIVE Urine Leukocyte Esterase 1+ H NEGATIVE Urine Methadone Screen NEGATIVE NEGATIVE Urine Methamphetamines Screen NEGATIVE NEGATIVE Urine Mucus NEGATIVE /LPF Urine Nitrite NEGATIVE NEGATIVE Urine Opiates Screen POSITIVE H NEGATIVE Urine Oxycodone Screen NEGATIVE NEGATIVE Urine Phencyclidine Screen NEGATIVE NEGATIVE Urine Propoxyphene Screen NEGATIVE NEGATIVE Urine Protein NEGATIVE NEGATIVE Urine RBC NONE /HPF Urine RBC (Auto) 1+ H NEGATIVE Urine Specific [place] 1.025 H 1.016-1.022 Urine Squamous Epithelial Cells 25-50 H /HPF Urine Urobilinogen 1 NORMAL MG/DL Urine WBC RARE /HPF Urine pH 5 5-9 My Orders Orders-ANNALEE BARILLAS DO Saline Lock/Iv-Start (09/23/16 22:13) Ekg Tracing (09/23/16 22:13) O2 (09/23/16 22:13) Monitor-Rhythm Ecg Trace Only (09/23/16 22:13) Amylase (09/23/16 22:13) BNP (09/23/16 22:13) Cbc With Automated Diff (09/23/16 22:13) Comprehensive Metabolic Panel (09/23/16 22:13) Creatine Kinase (09/23/16 22:13) Creatine Kinase Mb (09/23/16 22:13) Drug Screen Stat (Urine) (09/23/16 22:13) Lipase (09/23/16 22:13) Magnesium (09/23/16 22:13) Protime With Inr (09/23/16 22:13) Partial Thromboplastin Time (09/23/16 22:13) Troponin I (09/23/16 22:13) Ua Culture If Indicated (09/23/16 22:13) Chest 1 View, Ap/Pa Only (09/23/16 22:13) Ondansetron Injection (Zofran Injectio (09/23/16 22:15) Saline Lock/Iv-Start (09/23/16 22:13) Lactated Ringers (Lr 1000 Ml Iv Solution (09/23/16 22:13) Alcohol (09/23/16 22:15) Ammonia (09/23/16 22:15) Manual Differential (09/23/16 22:10) Acetaminophen (09/23/16 22:30) Furosemide Injection (Lasix Injection) (09/23/16 23:15) Medications Given in ED Current Medications Medications Dose Ordered Sig/Maricel Route Start Time Stop Time Status Last Admin Dose Admin Furosemide 80 mg ONCE ONCE IVP 09/23/16 23:15 09/23/16 23:16 DC 09/23/16 23:19 80 MG Lactated Ringer's 1,000 ml @ 0 mls/hr Q0M ONCE IV 09/23/16 22:13 09/23/16 22:15 DC 09/23/16 22:20 0 MLS/HR Ondansetron HCl 4 mg 4 mg ONCE ONCE IVP 09/23/16 22:15 09/23/16 22:16 DC 09/23/16 22:20 4 MG Vital Signs/I&O Vital Sign - Last 12Hours 09/23/16 09/23/16 09/23/16 09/23/16 22:07 22:16 23:25 23:45 Temp 98.2 98.2 97.1 Pulse 85 81 81 Resp 16 16 20 B/P 148/73 147/76 Pulse Ox 93 93 93 88 O2 Delivery Nasal Cannula Nasal Cannula Room Air O2 Flow Rate 2 2 2 09/24/16 09/24/16 01:13 02:00 Temp 97.3 Pulse 84 83 Resp 18 B/P 124/57 Pulse Ox 94 O2 Delivery Nasal Cannula O2 Flow Rate 2.00 Intake and Output 09/24/16 00:00 Intake Total 1000 ml Balance 1000 ml Progress Note : Progress Note NO DETERIORATION IN PT'S CONDITION DURING ER STAY ECG Initial ECG Impression Time: 22:25 Initial ECG Rate: 80 Initial ECG Rhythm: Normal Sinus Initial ECG Comparisson: Unchanged Diagnostic Imaging Comments CXR--FLUID OVERLOAD/CHF, PENDING RADIOLOGIST REVIEW Reviewed: Reviewed by Me Departure Communication Progress Notes 0014--SPOKE WITH DR. PANDA, SAS DEVELOPER FOR [facility], ACCEPTS PT FOR ADMIT Impression Impression: Primary Impression: END STAGE LIVER FAILURE Additional Impressions: Fluid overload Hepatic encephalopathy Nausea & vomiting Chronic anemia Chronic renal insufficiency Disposition: ADMITTED INPATIENT Condition: Stable Decision to Admit Reason: Admit from ER (General) Decision to Admit/Date: Sep 23, 2016 Time/Decision to Admit Time: 23:00 Departure-Patient Inst. Referrals: [facility] (PCP/Family) Primary Care Physician ANNALEE BARILLAS DO Sep 23, 2016 22:12
[2016-09-23] MEDS ORDERED: ONDANSETRON 4 MG/2 ML (SDV) Z0FRAN IVP ONE (22:15)
[2016-09-23 22:19] LABS: BASOPHILS # (AUTO) 0.1 10^3/uL (0.0-0.1); BASOPHILS % (AUTO) 1 % (0-10); EOSINOPHILS # (AUTO) 0.4 10^3/uL (0.0-0.3); EOSINOPHILS % (AUTO) 3 % (0-10); LYMPHOCYTES # (AUTO) 1.8 X 10^3 (1.0-4.0); LYMPHOCYTES % (AUTO) 13 % (12-44); MEAN CORPUSCULAR HEMOGLOBIN 34 PG (25-34); MEAN CORPUSCULAR HGB CONC 34 G/DL (32-36); MEAN CORPUSCULAR VOLUME 100 FL (80-99); MEAN PLATELET VOLUME 8.6 FL (7.4-10.4); MONOCYTES # (AUTO) 1.8 X 10^3 (0.0-1.0); MONOCYTES % (AUTO) 13 % (0-12); NEUTROPHILS # (AUTO) 9.9 X 10^3 (1.8-7.8); NEUTROPHILS % (AUTO) 71 % (42-75); PLATELET COUNT 162 10^3/uL (130-400); RED BLOOD COUNT 2.76 10^6/uL (4.35-5.85); RED CELL DISTRIBUTION WIDTH 21.2 % (10.0-14.5)
[2016-09-23 22:29] LABS: INR 1.6 (0.8-1.4); PROTHROMBIN TIME PATIENT 18.4 SEC (12.2-14.7)
[2016-09-23 22:38] LABS: ALANINE AMINOTRANSFERASE 35 U/L (0-55); ALBUMIN 3.4 G/DL (3.2-4.5); AMMONIA 82 UMOL/L (11-32); AMYLASE 66 U/L (25-125); ANION GAP 13 MMOL/L (5-14); ASPARTATE AMINO TRANSFERASE 52 U/L (5-34); BILIRUBIN,TOTAL 17.7 MG/DL (0.1-1.0); BLOOD UREA NITROGEN 25 MG/DL (7-18); BUN/CREATININE RATIO 17; CALCIUM 8.7 MG/DL (8.5-10.1); CARBON DIOXIDE 21 MMOL/L (21-32); CHLORIDE 99 MMOL/L (98-107); CREATINE KINASE 47 U/L (29-168); CREATININE SERUM 1.44 MG/DL (0.60-1.30); GFR ESTIMATED 38; GLUCOSE 145 MG/DL (70-105); LIPASE 71 U/L (8-78); MAGNESIUM 2.2 MG/DL (1.8-2.4); POTASSIUM 3.9 MMOL/L (3.6-5.0); SODIUM 133 MMOL/L (135-145); TOTAL PROTEIN 6.8 G/DL (6.4-8.2)
[2016-09-23 22:40] LABS: ALCOHOL < 10 MG/DL (<10)
[2016-09-23 22:42] LABS: BAND NEUTROPHILS 10 %; BASOPHILS % (MANUAL) 1 %; EOSINOPHILS % (MANUAL) 3 %; LYMPHOCYTES % (MANUAL) 7 %; METAMYELOCYTES % 3 %; NEUTROPHILS % (MANUAL) 69 %
[2016-09-23 22:45] LABS: TROPONIN I < 0.30 NG/ML (<0.30)
[2016-09-23] MEDS ORDERED: FUROSEMIDE 40 MG/4 ML INJ (LASIX) IVP ONE (23:15)
[2016-09-23 23:45] VITALS: BP 147/76
[2016-09-24 00:22] LABS: KETONES,URINE NEGATIVE (NEGATIVE); LEUKOCYTE ESTERASE ,URINE 1+ (NEGATIVE); NITRITE,URINE NEGATIVE (NEGATIVE); PH,URINE 5 (5-9); PROTEIN,URINE NEGATIVE (NEGATIVE); UROBILINOGEN,URINE 1 MG/DL (NORMAL)
[2016-09-24 00:29] LABS: SQUAMOUS EPITHELIAL CELL,UR 25-50 /HPF; WBC,URINE RARE /HPF
[2016-09-24 00:31] LABS: BILIRUBIN,URINE 1+ (NEGATIVE)
[2016-09-24] MEDS ORDERED: D5 1/2 NS 1000 ML IV SOLUTION 1,000 ML IV SCH (00:45)
[2016-09-24] MEDS ORDERED: LACTULOSE SYRUP 10GM/15ML (ENULOSE) 30ML UDC ONE ×5 (00:52→04:15)
[2016-09-24] MEDS: LACTULOSE 10 GM/15 ML 30 ML POUR BOTTLE FOR ENEMA PR SCH ×2 (01:11→04:23)
[2016-09-24 02:00] VITALS: BP 124/57
[2016-09-24 04:05] VITALS: BP 131/76
[2016-09-24 06:00] VITALS: BP 149/60
[2016-09-24] MEDS ORDERED: FUROSEMIDE 40 MG/4 ML INJ (LASIX) IV ONE (06:00)
[2016-09-24] MEDS ORDERED: FLU TRIvalent (5 YOA+) 2016-17 (AFLURIA) 0.5 ML IM ONE (07:15)
[2016-09-24] MEDS ORDERED: CATHETER FLUSH 10 ML SYR IV PRN (07:15)
[2016-09-24 07:58] LABS: BASOPHILS # (AUTO) 0.1 10^3/uL (0.0-0.1); BASOPHILS % (AUTO) 1 % (0-10); EOSINOPHILS # (AUTO) 0.3 10^3/uL (0.0-0.3); EOSINOPHILS % (AUTO) 2 % (0-10); LYMPHOCYTES # (AUTO) 1.3 X 10^3 (1.0-4.0); LYMPHOCYTES % (AUTO) 10 % (12-44); MEAN CORPUSCULAR HEMOGLOBIN 34 PG (25-34); MEAN CORPUSCULAR HGB CONC 33 G/DL (32-36); MEAN CORPUSCULAR VOLUME 102 FL (80-99); MEAN PLATELET VOLUME 8.6 FL (7.4-10.4); MONOCYTES # (AUTO) 1.6 X 10^3 (0.0-1.0); MONOCYTES % (AUTO) 12 % (0-12); NEUTROPHILS % (AUTO) 75 % (42-75); PLATELET COUNT 132 10^3/uL (130-400); RED BLOOD COUNT 2.49 10^6/uL (4.35-5.85); RED CELL DISTRIBUTION WIDTH 21.2 % (10.0-14.5); WHITE BLOOD COUNT 13.3 10^3/uL (4.3-11.0)
[2016-09-24 08:00] VITALS: BP 129/58
--- NOTE | 2016-09-24 08:16 | Diagnostic Imaging Report ---
Portable upright radiograph of the chest. INDICATION: Nausea, vomiting. FINDINGS: The heart size is moderately enlarged. There is pulmonary vascular congestion. There is no effusion or pneumothorax. The mediastinum and westley appear unremarkable. IMPRESSION: Cardiomegaly with pulmonary vascular congestion. Dictated by: Dictated on workstation # [id number]
[2016-09-24 08:19] LABS: ALBUMIN 3.1 G/DL (3.2-4.5); BILIRUBIN,TOTAL 16.2 MG/DL (0.1-1.0); CALCIUM 8.6 MG/DL (8.5-10.1); CREATININE SERUM 1.43 MG/DL (0.60-1.30); POTASSIUM 4.1 MMOL/L (3.6-5.0); TOTAL PROTEIN 6.1 G/DL (6.4-8.2)
--- NOTE | 2016-09-24 09:03 | Diagnostic Imaging Report ---
EXAMINATION: Portable upright radiograph of the chest. INDICATION: Fluid overload. COMPARISON: 09/23/2016. FINDINGS: The heart size is moderately enlarged. There is mild pulmonary vascular congestion. No effusion or pneumothorax. The mediastinum and westley appear unremarkable. IMPRESSION: Cardiomegaly with mild pulmonary vascular congestion, improved from the prior study. Dictated by: Dictated on workstation # [id number]
[2016-09-24] MEDS: LACTULOSE SYRUP 10GM/15ML (ENULOSE) 30ML UDC PO SCH ×2 (09:19→13:00)
[2016-09-24 12:00] VITALS: BP 148/70
[2016-09-24] MEDS ORDERED: LACTULOSE 10 GM/15 ML 30 ML POUR BOTTLE FOR ENEMA PR SCH (12:00)
--- NOTE | 2016-09-24 13:10 | Short Stay Summary ---
HPI History of Present Illness: 56 yo F that has known ESLD that presented to ED with increasing N/V and confusion. Per ED report stated that she took all her medications but had been vomiting. She had not yet had BM yesterday. States that she has had multiple large volume stools since arriving at the hospital. She is at her baseline this AM. No complaints this AM. Asking if there is anything other then lactulose to help because she feels that it is making her sick. States that she recently went to but not able to really tell me what they did. She did say that they started her on some new medication but she has not been able to fill because of cost. She just ran out of the samples they gave her. She states that she has follow up with this already scheduled. was not present this AM. Source: patient, RN/MD, old records Exam Limitations: no limitations Date seen by provider: Sep 24, 2016 Attending Physician Kaylie Becerra DO PCP [facility] Date of Admission Sep 23, 2016 at 23:15 Home Medications Home Medications Reviewed patient Home Medication Reconciliation Form Allergies Coded Allergies: No Known Drug Allergies (Unverified , 03/22/13) IUS-Qjrqhx-Kubrlf Hx Patient Social History Living Status: Lives in home with Alcohol Use: Denies Use Recreational Drug Use: No (SMOKER, DENIES ALCOHOL USE) Smoking Status: Current Everyday Smoker Type Used: Cigarettes Recent Foreign Travel: No Contact w/other who traveled: No Recent Hopitalizations: Yes (08/12- FOR HEPATIC ENCEPHALOPATHY) Recent Infectious Disease Expo: No Physical Abuse Screen: No Sexual Abuse: No Immunizations Up To Date Tetanus Booster (TDap): Unknown Date of Influenza Vaccine: May 06, 2015 Past Medical History Past medical history 1. 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 Thompson, multiple episodes of hepatic Encephalopathy 2. 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 Portal hypertension and splenomegaly secondary to number 1 4. Pancytopenia 5. Tobaccoism 6. Hiatal hernia and GERD 7. History of pancreatic pseudocyst 8. Venous insufficiency and chronic stasis dermatitis 9. Cervical cancer by history 10. Chronic Narcotic Use secondary to "chronic pain" 11. Chronic non-compliance with medications, diet and follow up Past surgical history 1. Hysterectomy 2. Tonsillectomy and adenoidectomy 3. Varicose vein stripping 4. Cholecystectomy 5. Intestinal bypass and reversal 6. Appendectomy 7. Esophageal varices banding x4 2010 Family Medical History Significant Family History: No Pertinent Family Hx, GI Disease Family History: Cervical cancer 19 MOTHER FH: heart disease 19 FATHER Review of Systems ([facility]) Constitutional: no symptoms reportedNo chills, No dizziness, malaise Respiratory: no symptoms reportedNo cough, No dyspnea on exertion, No short of breath Cardiovascular: No chest pain, edemaNo palpitations Gastrointestinal: no symptoms reportedNo abdominal pain, No constipation, nauseaNo vomiting Genitourinary: No dysuria, No frequency, No hematuria : No Musculoskeletal: no symptoms reported Skin: no symptoms reported Psychiatric/Neurological: No Symptoms Reported Reviewed Test Results Reviewed Test Results Lab Laboratory Tests Test 09/23/16 22:10 09/24/16 00:09 09/24/16 07:50 Range/Units Acetaminophen Level < 10 L 10-30 UG/ML Activated Partial Thromboplast Time 40 H 24-35 SEC Alanine Aminotransferase (ALT/SGPT) 35 31 0-55 U/L Albumin 3.4 3.1 L 3.2-4.5 G/DL Alkaline Phosphatase 194 H 174 H 40-136 U/L Ammonia 82 H 58 H 11-32 UMOL/L Amylase Level 66 25-125 U/L Anion Gap 13 13 5-14 MMOL/L Aspartate Amino Transf (AST/SGOT) 52 H 45 H 5-34 U/L B-Type Natriuretic Peptide 181.1 H <100.0 PG/ML BUN/Creatinine Ratio 17 20 Band Neutrophils 10 % Basophils # (Auto) 0.1 0.1 0.0-0.1 10^3/uL Basophils % (Manual) 1 % Basophils (%) (Auto) 1 1 0-10 % Blood Morphology Comment NORMAL Blood Urea Nitrogen 25 H 28 H 7-18 MG/DL Calcium Level 8.7 8.6 8.5-10.1 MG/DL Carbon Dioxide Level 21 21 21-32 MMOL/L Chloride Level 99 99 98-107 MMOL/L Creatine Kinase MB 1.9 <6.6 NG/ML Creatinine 1.44 H 1.43 H 0.60-1.30 MG/DL Eosinophils # (Auto) 0.4 H 0.3 0.0-0.3 10^3/uL Eosinophils % (Manual) 3 % Eosinophils (%) (Auto) 3 2 0-10 % Estimat Glomerular Filtration Rate 38 38 Glucose Level 145 H 133 H 70-105 MG/DL Hematocrit 28 L 25 L 35-52 % Hemoglobin 9.3 L 8.4 L 11.5-16.0 G/DL INR Comment 1.6 H 0.8-1.4 Lipase 71 8-78 U/L Lymphocytes # (Auto) 1.8 1.3 1.0-4.0 X 10^3 Lymphocytes % (Manual) 7 % Lymphocytes (%) (Auto) 13 10 L 12-44 % Magnesium Level 2.2 1.8-2.4 MG/DL Mean Corpuscular Hemoglobin 34 34 25-34 PG Mean Corpuscular Hemoglobin Concent 34 33 32-36 G/DL Mean Corpuscular Volume 100 H 102 H 80-99 FL Mean Platelet Volume 8.6 8.6 7.4-10.4 FL Metamyelocytes % 3 % Monocytes # (Auto) 1.8 H 1.6 H 0.0-1.0 X 10^3 Monocytes % (Manual) 7 % Monocytes (%) (Auto) 13 H 12 0-12 % Neutrophils # (Auto) 9.9 H 10.0 H 1.8-7.8 X 10^3 Neutrophils % (Manual) 69 % Neutrophils (%) (Auto) 71 75 42-75 % Platelet Count 162 132 130-400 10^3/uL Potassium Level 3.9 4.1 3.6-5.0 MMOL/L Prothrombin Time 18.4 H 12.2-14.7 SEC Red Blood Count 2.76 L 2.49 L 4.35-5.85 10^6/uL Red Cell Distribution Width 21.2 H 21.2 H 10.0-14.5 % Serum Alcohol < 10 <10 MG/DL Sodium Level 133 L 133 L 135-145 MMOL/L Total Bilirubin 17.7 H 16.2 H 0.1-1.0 MG/DL Total Creatine Kinase 47 29-168 U/L Total Protein 6.8 6.1 L 6.4-8.2 G/DL Troponin I < 0.30 <0.30 NG/ML White Blood Count 14.0 H 13.3 H 4.3-11.0 10^3/uL Ur Tricyclic Antidepressants Screen NEGATIVE NEGATIVE Urine Amphetamines Screen NEGATIVE NEGATIVE Urine Bacteria LARGE H /HPF Urine Barbiturates Screen NEGATIVE NEGATIVE Urine Benzodiazepines Screen NEGATIVE NEGATIVE Urine Bilirubin 1+ H NEGATIVE Urine Cannabinoids Screen NEGATIVE NEGATIVE Urine Casts NONE /LPF Urine Clarity SLIGHTLY CLOUDY Urine Cocaine Screen NEGATIVE NEGATIVE Urine Color JIM H Urine Crystals NONE /LPF Urine Culture Indicated YES Urine Glucose (UA) NEGATIVE NEGATIVE Urine Ketones NEGATIVE NEGATIVE Urine Leukocyte Esterase 1+ H NEGATIVE Urine Methadone Screen NEGATIVE NEGATIVE Urine Methamphetamines Screen NEGATIVE NEGATIVE Urine Mucus NEGATIVE /LPF Urine Nitrite NEGATIVE NEGATIVE Urine Opiates Screen POSITIVE H NEGATIVE Urine Oxycodone Screen NEGATIVE NEGATIVE Urine Phencyclidine Screen NEGATIVE NEGATIVE Urine Propoxyphene Screen NEGATIVE NEGATIVE Urine Protein NEGATIVE NEGATIVE Urine RBC NONE /HPF Urine RBC (Auto) 1+ H NEGATIVE Urine Specific [place] 1.025 H 1.016-1.022 Urine Squamous Epithelial Cells 25-50 H /HPF Urine Urobilinogen 1 NORMAL MG/DL Urine WBC RARE /HPF Urine pH 5 5-9 Radiology Date of Exam: 09/24/16 CHEST 1 VIEW, AP/PA ONLY EXAMINATION: Portable upright radiograph of the chest. INDICATION: Fluid overload. COMPARISON: 09/23/2016. FINDINGS: The heart size is moderately enlarged. There is mild pulmonary vascular congestion. No effusion or pneumothorax. The mediastinum and westley appear unremarkable. IMPRESSION: Cardiomegaly with mild pulmonary vascular congestion, improved from the prior study. Physical Exam-([facility]) Physical Exam Vital Signs VS - Last 72 Hours, by Label 09/23/16 09/23/16 09/23/16 09/23/16 22:07 22:16 23:25 23:45 Temp 98.2 98.2 Pulse 85 81 Resp 16 16 B/P 148/73 Pulse Ox 93 93 93 94 O2 Delivery Nasal Cannula Nasal Cannula Nasal Cannula O2 Flow Rate 2 2 2 2.00 09/23/16 09/24/16 09/24/16 09/24/16 23:45 01:13 02:00 04:05 Temp 97.1 97.3 97.6 Pulse 81 84 83 72 Resp 20 18 20 B/P 147/76 124/57 131/76 Pulse Ox 88 94 95 O2 Delivery Room Air Nasal Cannula Room Air O2 Flow Rate 2.00 09/24/16 09/24/16 09/24/16 06:00 07:00 08:00 Temp 98.0 97.9 Pulse 70 82 84 Resp 20 18 B/P 149/60 129/58 Pulse Ox 94 84 O2 Delivery Nasal Cannula Nasal Cannula O2 Flow Rate 2.00 2.00 Capillary Refill : Less Than 3 Seconds General Appearance: no apparent distress other (Thin extremities with large abdomen, Jaudice present) HEENT: scleral icterus (R) scleral icterus (L) Neck: non-tender full range of motion supple normal inspection Respiratory: chest non-tender lungs clear normal breath sounds no respiratory distress no accessory muscle use Cardiovascular: regular rate, rhythm no edema no gallop no JVD Gastrointestinal: normal bowel sounds hepatomegaly spleenomegaly other ( Nontender, firm, no rebound) Extremities: normal range of motion non-tender no calf tenderness pedal edema (1+ bilaterally) 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 as tested no motor/sensory deficits alert normal mood/affect oriented x 3 Skin: normal color warm/dry Lymphatic: no adenopathy Short Stay Diagnosis Discharge Diagnosis-Short Stay Admission Diagnosis ESLD with Hepatic Encephalopathy Fluid Overload Nausea and Vomiting Chronic Anemia Chronic Kidney Insufficiency Final Discharge Diagnosis Same as Above Conclusion Plan 56 yo F with known ESLD admitted with hepatic Encephalopathy now at her baseline requesting to go home Plan: ESLD with Hepatic Encephalopathy - Seems to be at patients baseline - Continue Lactulose 30mL q 6hrs Fluid Overload - Improved, Daily weights and low salt diet Nausea and Vomiting: Resolved Chronic Anemia: At baseline, no signs of bleeding Chronic Kidney Insufficiency - Mildly above baseline, Will monitor in clinic FEN: Low salt diet Dispo: Home with family today, continue to follow with Hepatology Clinical Quality Measures DVT/VTE Risk/Contraindication: Risk Factor Score Per Nursin RFS Level Per Nursing on Admit: 4+=Very High Copy Copies To 1: FRANK RODRÍGUEZ MD, HOLLY R MD Sep 24, 2016 13:10
--- NOTE | 2016-09-24 13:24 | Discharge Instructions ---
Discharge Inst-[facility] Discharge Medications New, Converted or Re-Newed RX: Other (No New scripts, Encouraged patient to bring in scripts given to her by ) Continued Medications: Furosemide (Furosemide) 80 Mg Tablet 80 MG PO BID L. Acidophilus/Bulgaricus (Floranex Tablet) 1 Each Tablet 1 TAB.CHEW PO AC #90 Ref 0 TAB Lactulose (Lactulose) 20 Gm/30 Ml Solution 20 GM PO Q6H #3600 Ref 0 ML Propranolol HCl (Propranolol HCl) 20 Mg Tablet 20 MG PO BID #60 Ref 0 TAB Ranitidine HCl (Ranitidine HCl) 150 Mg Tablet 150 MG PO BID TAB Spironolactone (Spironolactone) 100 Mg Tablet 200 MG PO DAILY TAKES 2 (100 MG) TABLETS TAB Patient Instructions Goal/Follow Up Appt: You have a follow up appointment with Dr Ramey on October 04 @ 0900AM Patient Instructions: - It is very important that you take your lactulose - Enocouraged patient to bring in scripts that she was given while she was at [facility]: - Return of symptoms - Increased pain - Chest pain - Shortness of breath Activity & Diet Discharge Diet: Low Sodium Diet Activity as Tolerated: Yes Orders-Post D/C & Referrals Pneu Vac Indicated: Yes Copy Copies To 1: FRANK RAMEY MD, HOLLY R MD Sep 24, 2016 13:24
== END 2016-09-24 14:48 | disposition home or self-care (01) | DRG 443 ==
LOC: EDUNIT# 22:05 → ER 22:06 → 4TH 23:15
PROVIDERS: ADMIT Internal Medicine; ATTEND Internal Medicine
DX: K72.90 Hepatic failure, unspecified without coma (principal); K74.60 Unspecified cirrhosis of liver; K75.81 Nonalcoholic steatohepatitis (NASH); E87.70 Fluid overload, unspecified; N18.9 Chronic kidney disease, unspecified; D64.9 Anemia, unspecified; K21.9 Gastro-esophageal reflux disease without esophagitis; R60.0 Localized edema; I87.8 Other specified disorders of veins; F17.210 Nicotine dependence, cigarettes, uncomplicated; Z23 Encounter for immunization
CPT/HCPCS: 36415; 71010; 80053; 80306; 80320; 80329; 81000; 82140; 82150; 82550; 82553; 83690; 83735; 83880; 84484; 85007; 85025; 85027; 85610; 85730; 87077; 87088; 87186; 93005; 93041; 96361; 96374; 96375

== ENCOUNTER 2016-10-05 11:04 | Outpatient (RCR) | payer SELFPAY ==
--- OUTSIDE RECORDS SUMMARY | 2016-09-29 09:48 | XMS REPORT | Continuity of Care Document ---
Author Author [facility] Organization [facility] Address Unknown Phone Unavailable Care Team Providers Care Director Of Coding Name Role Phone Sheron Ramey PCP [phone] Source Comments Some departments are not documenting in the electronic medical record. If you do not see the information that you expected, contact Release of Information in the Health Information Management department at [phone] for further assistance in locating additional records.[facility] Active Allergies and Adverse Reactions No Known [...] Recent Encounters Date Type Specialty Providers Description 09/26/2016 Telephone Transplant Surgery Nicki Gonzalez MD Other - appointment 09/26/2016 Telephone Transplant Surgery Nicki Gonzalez MD 09/24/2016 Telephone Hepatology Tricia Harper RN Medication Follow-up 09/19/2016 Telephone Hepatology Tricia Harper RN Follow-up Phone Call 09/19/2016 Telephone Hepatology Tricia Harper RN Medication Follow-up 09/12/2016 Orders Only Hepatology Whitney Dorman RN 09/12/2016 Anesthesia [place], BULB INSPECTOR Event 09/12/2016 Surgery Jg Kevin MD ESOPHAGOGASTRODUODENOSCOP Y 09/11/2016 Anesthesia Vilma Gilmore, DMITRY Event 09/09/2016 [facility] Ruddy Jon MD Hepatic encephalopathy [...] Taken Blood Pressure 112/44 09/12/2016 3:27 PM FUNCTIONAL TESTER Pulse 83 09/12/2016 3:27 PM FUNCTIONAL TESTER Temperature 36.9 C (98.5 F) 09/12/2016 3:27 PM FUNCTIONAL TESTER Respiratory Rate - - Height 1.702 m (5' 7") 09/10/2016 2:01 PM FUNCTIONAL TESTER Weight 99.973 kg (220 lb 6.4 oz) 09/12/2016 5:37 AM FUNCTIONAL TESTER Body Mass Index 34.51 09/12/2016 5:37 AM FUNCTIONAL TESTER Oxygen Saturation 95% 09/12/2016 3:27 PM FUNCTIONAL TESTER Plan of Care Date Type Specialty Providers Description 12/13/2016 Appointment Hepatology Neil Walsh MD [address] [place] [address] [phone] (Fax) Health Maintenance Due Date Last Done Comments Hepatitis C Screening 1960 Physical (Comprehensive) 1966 Exam Pertussis Vaccine 1970 Tetanus Vaccine 02/13/1976 Cervical Cancer Screening 02/13/1980 Breast Cancer Screening 1999 Colorectal Cancer 2009 Screening Influenza Vaccine 03/29/2017 Procedures from Last 3 Months Procedure Name Priority Date/Time Associated Diagnosis Comments TELEMETRY STRIPS-SCAN 09/14/2016 Results for this 9:46 AM FUNCTIONAL TESTER procedure are in the results section. TELEMETRY STRIPS-SCAN 09/14/2016 Results for this 9:46 AM FUNCTIONAL TESTER procedure are in the results section. TELEMETRY STRIPS-SCAN 09/14/2016 Results for this 9:46 AM FUNCTIONAL TESTER procedure are in the results section. ECG UNCONFIRMED-SCAN 09/14/2016 Results for this 7:10 AM FUNCTIONAL TESTER procedure are in the results section. ESOPHAGOGASTRODUODENOSCOP 09/12/2016 Iron deficiency anemia Y 1:00 PM FUNCTIONAL TESTER ECG-SCAN 09/12/2016 Results for this 6:50 AM FUNCTIONAL TESTER procedure are in the results section. ECG-SCAN 09/11/2016 Results for this 1:05 PM FUNCTIONAL TESTER procedure are in the results section. ECG-SCAN 09/11/2016 Results for this 1:05 PM FUNCTIONAL TESTER procedure are in the results section. Results [...] [place] Procedure Date: 09/12/2016 12:14 PM CSN: [id number] Date of : 1960 Gender: Female Attending [...] 56 seconds Procedure Code(s): --- Professional --- 05655, Esophagogastroduodenoscopy, flexible, transoral; diagnostic, including collection of specimen(s) by brushing or washing, when performed (separate procedure) Diagnosis Code(s): --- Professional --- K20.9, Esophagitis, unspecified K44.9, Diaphragmatic hernia without obstruction or gangrene K76.6, Portal hypertension K31.89, Other diseases of stomach and duodenum CPT copyright 2015 [employer]. All rights reserved. The codes documented in this report are preliminary and upon supervisor throwing department review may be revised to meet current [...] ECHO EF 65 % CV ECHO PV STONECUTTER Maggy Gray RN LVIDD 5.1 3.9-5.3 cm LVIDS 3.0 cm [...] peak gradient of 58 mmHg AV index (pala) 0.34 AV regurgitation pressure 367 msec 1/2 [...] Results - SatSep 10, 2016 1:33 PM FUNCTIONAL TESTER Abdominal Duplex Ultrasound Clinical Indication: Altered mental [...] Results - SatSep 10, 2016 1:33 PM FUNCTIONAL TESTER Abdominal Duplex Ultrasound Clinical Indication: Altered mental [...] Color,UA JIM Turbidity,UA 1+ (A) CLEAR-CLEAR Specific [place]-Urine 1.014 1.003-1.035 pH,UA 7.0 5.0-8.0 Protein,UA 1+ [...] Results - SatSep 10, 2016 7:47 AM FUNCTIONAL TESTER CHEST SINGLE VIEW Clinical Indication: Female, 56 [...] - Sun Sep 09, 2016 7:[address] Abdomen and Pelvis Clinical Indication: Female, [...] - Sun Sep 09, 2016 7:36 PM FUNCTIONAL TESTER EXAM: CT HEAD HISTORY: 56-year-old female, AMS, [...] TROPONIN (09/09/2016 5:48 PM) Component Value Range Egtwwctt-T-LQN 0.00 0.00-0.05 NG/ML POC ED US GUIDED PARACENTESIS (09/09/2016 5:37 PM) Impressions [facility] - [facility] Ultrasound Exam Date: 09/09/2016 Exam Type: POC ED US GUIDED PARACENTESIS Technical Support Technician: Manuel Hein Attending: Ruddy Jon Worksheet: ED-Paracentesis [...] - Sun Sep 09, 2016 11:07 PM FUNCTIONAL TESTER IMPRESSION [facility] - Y[facility]wm-xo-Ienr Ultrasound Exam Date: 09/09/2016 Exam Type: POC ED US GUIDED PARACENTESIS Technical Support Technician: Manuel Hein Attending: Ruddy Jon Worksheet: ED-Paracentesis [...]
[2016-09-29 10:00] VITALS: BP 122/60
[2016-09-29 12:16] LABS: CALCIUM 8.8 MG/DL (8.5-10.1); CREATININE SERUM 1.21 MG/DL (0.60-1.30); POTASSIUM 4.5 MMOL/L (3.6-5.0)
[2016-09-29 14:43] VITALS: BP 122/60
[2016-10-01 12:10] VITALS: BP 121/50
[2016-10-01] MEDS: GENTAMICIN IV SCH (12:33)
[2016-10-01] MEDS: NS IV SCH (12:33)
[2016-10-03 11:40] VITALS: BP 107/52
[2016-10-03] MEDS: GENTAMICIN IV SCH (11:40)
[2016-10-03] MEDS: NS IV SCH (11:40)
[2016-10-03 12:50] VITALS: BP 107/52
[~2016-10-05] VITALS: Ht 172.7 cm; Wt 97.6 kg
[~2016-10-05 11:04] MED LIST changes: +GENTAMICIN IV SCH; +NS IV SCH; +TROUGH ORDER-PHARMACY XX NR
[2016-10-05] MEDS: GENTAMICIN IV SCH (11:30)
[2016-10-05] MEDS: NS IV SCH (11:30)
[2016-10-05 11:51] LABS: MEAN PLATELET VOLUME 9.3 FL (7.4-10.4); RED BLOOD COUNT 2.71 10^6/uL (4.35-5.85); RED CELL DISTRIBUTION WIDTH 20.7 % (10.0-14.5); WHITE BLOOD COUNT 10.9 10^3/uL (4.3-11.0)
[2016-10-05 12:11] LABS: ALBUMIN 3.3 G/DL (3.2-4.5); BILIRUBIN,TOTAL 16.9 MG/DL (0.1-1.0); CREATININE SERUM 1.6 MG/DL (0.60-1.30)
[2016-10-05 12:40] VITALS: BP 97/51
== END 2016-12-28 | disposition home or self-care (01) ==
LOC: SDC 11:04
PROVIDERS: ATTEND Family Medicine
DX: N30.01 Acute cystitis with hematuria (principal)
CPT/HCPCS: 36415; 80048; 80053; 80170; 85027; 96365